=== PATIENT | male | born 1945 | race Caucasian/White ===

== ENCOUNTER 2017-01-16 20:19 | Emergency (ER) ==
[2017-01-16 20:38] VITALS: TEMP 97.3; BMI 30.7
[2017-01-16] MEDS ORDERED: SODIUM CHLORIDE 1,000 ML IV STA ×2 (20:42→22:31)
[2017-01-16 20:58] LABS: BASOPHILS # (AUTO) 0.1 K/uL (0-0.2); BASOPHILS % (AUTO) 0.8 % (0.0-3.0); EOSINOPHILS # (AUTO) 0.3 K/ul (0.0-0.7); EOSINOPHILS % (AUTO) 4.1 % (0.0-7.0); HEMATOCRIT 40.4 % (42.0-52.0); HEMOGLOBIN 14.1 g/dl (14.0-18.0); IMMATURE GRANULOCYTE % (AUTO) 0.3 % (0.0-5.0); LYMPHOCYTES # (AUTO) 1.5 K/uL (0.60-3.4); LYMPHOCYTES % (AUTO) 23.6 (10.0-50.0); MEAN CORPUSCULAR HEMOGLOBIN 33.3 pg (27.0-31.0); MEAN CORPUSCULAR HGB CONC 34.9 (31.8-35.4); MEAN CORPUSCULAR VOLUME 95.3 fl (80.0-94.0); MONOCYTES # (AUTO) 0.5 K/uL (0.4-2.0); MONOCYTES % (AUTO) 7.3 (0-10); NEUTROPHILS # (AUTO) 4.1 K/ul (2.0-6.9); NEUTROPHILS % (AUTO) 63.9; PLATELET COUNT 179 10^3/uL (140-440); RED BLOOD COUNT 4.24 10^6/ul (4.70-6.10)
--- NOTE | 2017-01-16 21:20 | CT ---
EXAM: CT brain without contrast HISTORY: Dizzy TECHNIQUE: Multi-slice transaxial helical with coronal and sagital reformated images COMPARISON: None FINDINGS: The midline structures are central. The ventricles are neither dilated nor displaced. Th e sulci and subdural spaces are prominent at the convexities. Minimal low attenuation in the perivent ricular white matter is nonspecific but is likely related to chronic microvascular ischemic disease. Focal encephalomalacia is noted in the left frontal lobe. No acute intraparenchymal or extraaxial hem orrhagic collections are detected. The calvarium is intact. Scattered ethmoid air cells have thickened mucous membranes. The other vis ible portions of the paranasal sinuses and mastoid air cells are clear. IMPRESSION: 1. No acute intracranial process. 2. 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 3. Encephalomalacia in the left frontal lobe. 4. Scattered ethmoid air cell disease.
[2017-01-16 21:23] LABS: ALBUMIN 3.4 g/dL (3.4-5.0); ALBUMIN/GLOBULIN RATIO 0.81; ANION GAP 15.2; BILIRUBIN,TOTAL 0.26 mg/dL (0.00-1.20); BUN/CREATININE RATIO 17.1; CALCIUM 8.6 mg/dL (8.2-10.2); CREATININE 1.52 mg/dL (0.60-1.10); POTASSIUM 4.2 mmol/L (3.5-5.1); TOTAL PROTEIN 7.6 g/dL (5.8-8.1); TROPONIN I 0.017 ng/ml (0.0000-0.4000)
--- NOTE | 2017-01-16 22:03 | ED.PDOC ---
General ED Provider: Dr. AYLIN GAFFNEY-ER Chief Complaint: Non-specific Complaint Stated Complaint: i took 11/2 tabs of viagra plus flomax and drank a beer and felt dizzy, with blurred vision--bp here 100 systolic Time Seen by Physician: 20:25 Mode of Arrival: Walk-In Information Source: Patient Exam Limitations: No limitations Primary Care Provider: HEATH GABRIEL Nursing and Triage Documentation Reviewed and Agree: Yes Neurological Complaint Exam - Weakness Complaint/Exam Last Known Well: this afternoon Onset: Sudden Symptoms Are: Resolved Initial Severity: Mild Current Severity: Mild Character: Reports: Weak Aggravating: Reports: Position change, Supine to erect Alleviating: Reports: Lying down Associated Signs and Symptoms: Reports: Diaphoresis, Change in medication. Denies: Nausea, Vomiting, Tinnitus, Chest pain, Short of air, Palpitations, Unsteady gait, GI blood loss, Visual changes, Decreased oral intake, Change in diet, OTC meds, Loss of balance CVA Risk Factors: Reports: None Related Surgical History: Reports: None JVD Present: No Carotid Bruit Present: No Glascow Coma Scale (see protocol): 15 Nystagmus Present: No Gag Reflex Present: Yes Meningeal Signs Positive: No Focal Weakness: Present: None Focal Sensory Loss: Present: None Gait: Normal [id number]: Normal Findings Romberg Test Positive: No Babinski Sign: Negative Right, Negative Left Heel to Toe Normal: Yes Jean-Hallpike Test Positive: Yes Differential Diagnoses: CAD, Hypovolemia, Medication reaction, Other Quality Indicator For Non-Traumatic Chest Pain/Syncope: EKG Performed Review of Systems - Review Of Systems Constitutional: Reports: No symptoms Eyes: Reports: No symptoms Ears, Nose, Mouth, Throat: Reports: No symptoms Respiratory: Reports: No symptoms Cardiac: Reports: Lightheadedness GI: Reports: No symptoms : Reports: No symptoms Musculoskeletal: Reports: No symptoms Skin: Reports: No symptoms Neurological: Reports: Weakness Endocrine: Reports: No symptoms Hematologic/Lymphatic: Reports: No symptoms All Other Systems: Reviewed and Negative Past Medical History - Past Medical History Previously Healthy: No Endocrine: Reports: Unknown Cardiovascular: Reports: Unknown Respiratory: Reports: Unknown Hematological: Reports: Unknown Gastrointestinal: Reports: Unknown Genitourinary: Reports: Unknown Neuro/Psych: Reports: Unknown Musculoskeletal: Reports: Unknown Cancer: Reports: Unknown - Surgical History General Surgical History: Reports: Unknown - Family History Family History: Reports: Unknown - Social History Smoking Status: Former smoker Hx Substance Use: No Alcohol Screening: Occasionally - Immunizations Tetanus Shot up to Date: Yes Physical Exam - Physical Exam Appearance: Well-appearing, No pain distress, Well-nourished Eyes: JACOB, EOMI, Conjunctiva clear ENT: Ears normal, Nose normal, Oropharynx normal Neck: Supple Respiratory: Airway patent Cardiovascular: RRR, Pulses normal, No rub, No murmur GI/: Soft, Nontender, No masses, Bowel sounds normal, No Organomegaly Musculoskeletal: Normal strength, ROM intact, No edema, No calf tenderness Skin: Warm, Dry, Normal color Neurological: Sensation intact, Alert, Oriented Psychiatric: Affect appropriate, Mood appropriate Interpretation - Radiology Interpretation Radiology Interpretation By: Radiologist Radiology Results: Negative Exam Interpreted: CT Scan - EKG Interpretation Time of EKG #1: 22:04 Rate: Normal Rhythm: Sinus Ectopy: None Ral[place]: NL ST Segment: Normal Re-Evaluation - Re-Evaluation Time of Re-Evaluation: 22:58 Status: Improved (no dizziness or chest pain) Vital Signs Stable: Yes (bp improved) Pain Level: 0 Appearance: NAD Lungs: Clear Skin: Warm and Dry Neuro: Alert and Oriented X3 CV: RRR Critical Care Note - Critical Care Note Total Time (mins): 0 Course - Course Hematology/Chemistry: 01/16/17 20:52 01/16/17 20:52 Orders, Labs, Meds: Lab Review 01/16/17 01/16/17 01/16/17 20:52 20:52 20:52 WBC 6.40 RBC 4.24 L Hgb 14.1 Hct 40.4 L MCV 95.3 H MCH 33.3 H MCHC 34.9 RDW Coeff of Margaret 12.3 Plt Count 179 Immature Gran % (Auto) 0.3 Neut % (Auto) 63.9 Lymph % (Auto) 23.6 Calhoun % (Auto) 7.3 Eos % (Auto) 4.1 Baso % (Auto) 0.8 Immature Gran # (Auto) 0.0 Neut # 4.1 Lymph # 1.5 Calhoun # 0.5 Eos # 0.3 Baso # 0.1 D-Dimer (Manual) Sodium 143 Potassium 4.2 Chloride 112 H Carbon Dioxide 20 L Anion Gap 15.2 BUN 26 H Creatinine 1.52 H Estimated GFR (MDRD) 46.00 BUN/Creatinine Ratio 17.10 Glucose 115 Calcium 8.6 Total Bilirubin 0.26 AST 22 ALT 29 Alkaline Phosphatase 102 Total Creatine Kinase 97 Troponin I 0.0170 Total Protein 7.6 Albumin 3.4 Globulin 4.2 Albumin/Globulin Ratio 0.81 Plasma/Serum Alcohol < 10.0 01/16/17 20:52 WBC RBC Hgb Hct MCV MCH MCHC RDW Coeff of Margaret Plt Count Immature Gran % (Auto) Neut % (Auto) Lymph % (Auto) Calhoun % (Auto) Eos % (Auto) Baso % (Auto) Immature Gran # (Auto) Neut # Lymph # Calhoun # Eos # Baso # D-Dimer (Manual) 574.67 Sodium Potassium Chloride Carbon Dioxide Anion Gap BUN Creatinine Estimated GFR (MDRD) BUN/Creatinine Ratio Glucose Calcium Total Bilirubin AST ALT Alkaline Phosphatase Total Creatine Kinase Troponin I Total Protein Albumin Globulin Albumin/Globulin Ratio Plasma/Serum Alcohol Orders Category Date Time Status EKG-(ED ONLY) Stat CARDIO 01/16/17 20:41 Completed Rubbish Collector [ED ADVERTISING ACCOUNT MANAGER APPLIED] .ONCE EMERGENCY 01/16/17 20:42 Active IV [ED IV/MEDIPORT/POWERPORT] .ONCE EMERGENCY 01/16/17 20:42 Active CBC W/ AUTO DIFF Stat LAB 01/16/17 20:52 Completed COMPREHENSIVE METABOLIC PANEL Stat LAB 01/16/17 20:52 Completed CREATINE KINASE Stat LAB 01/16/17 20:52 Completed D-DIMER Stat LAB 01/16/17 20:52 Completed ETOH LEVEL [BLOOD ALCOHOL] Stat LAB 01/16/17 20:52 Completed TROPONIN I Stat LAB 01/16/17 20:52 Completed 0.9 % Sodium Chloride [Saline Flush] MEDS 01/16/17 20:42 Ordered 1 syr IVF PRN PRN Sodium Chloride 0.9% [Sodium Chloride] 1,000 ml MEDS 01/16/17 20:42 Discontinued IV BOLUS Sodium Chloride 0.9% [Sodium Chloride] 1,000 ml MEDS 01/16/17 22:[address] HEAD W/O CONTRAST Stat RADS 01/16/17 20:42 Completed Medications Generic Name Dose Route Start Last Admin Trade Name Freq PRN Reason Stop Dose Admin Sodium Chloride 1,000 mls @ 1,000 mls/hr 01/16/17 22:31 01/16/17 22:41 Sodium Chloride IV 01/16/17 23:30 1,000 mls/hr BOLUS STA Administration Sodium Chloride 1 syr 01/16/17 20:42 01/16/17 21:02 Saline Flush IVF 1 syr PRN PRN Administration To flush IV Discontinued Medications Generic Name Dose Route Start Last Admin Trade Name Freq PRN Reason Stop Dose Admin Sodium Chloride 1,000 mls @ 1,000 mls/hr 01/16/17 20:42 01/16/17 21:02 Sodium Chloride IV 01/16/17 21:41 1,000 mls/hr BOLUS STA Administration Vital Signs: Temp Pulse Resp BP Pulse Ox 01/16/17 20:23 97.3 F L 92 H 20 100/65 93 L Departure - Departure Time of Disposition: 22:58 Disposition: HOME SELF-CARE Discharge Problem: Hypotension due to drugs Instructions: Hypotension (ED) Condition: Good Pt referred to PMD for follow-up: Yes Additional Instructions: monitor bp--take flomax before bedtime--dont take more viagra than what is prescribed--talk to dr gabriel wednesday about kidney function Allergies/Adverse Reactions: Allergies morphine Adverse Reaction (Verified 01/16/17 20:35) Home Medications: Ambulatory Orders Aspirin [Aspirin EC] 81 mg PO DAILY 01/16/17 Venlafaxine HCl [Effexor] 75 mg PO DAILY 01/16/17 Disposition Discussed With: Patient, Family
[2017-01-16 23:04] VITALS: BP 112/74
== END 2017-01-16 23:05 | disposition home or self-care (01) ==
LOC: ED 20:19
DX: I95.2 Hypotension due to drugs (principal); T46.7X5A Adverse effect of peripheral vasodilators, initial encounter; R42 Dizziness and giddiness; R53.1 Weakness; H53.8 Other visual disturbances
CPT/HCPCS: 36415; 80053; 80307; 82550; 84484; 85025; 85379; 93005; 93010; 96360; 96361; 99284

== ENCOUNTER 2017-02-03 07:57 | Day surgery (SDC) ==
[2017-02-03] MEDS: TETRACAINE 0.5% UNIT-DOSE OP PRN ×2 (08:30→09:02)
[2017-02-03] MEDS: BETADINE OPTH PREP OP PRN ×2 (08:31→09:02)
[2017-02-03] MEDS: CYCLOGYL 2% OPTH OP PRN ×3 (08:32→08:42)
[2017-02-03 08:47] VITALS: TEMP 98.6
[2017-02-03] MEDS ORDERED: AK-DILATE 10% OPTH SOL OP PRN (08:51)
[2017-02-03] MEDS ORDERED: OMIDRIA 1-0.3% IN BSS BAG IR ONE (08:51)
[2017-02-03] MEDS ORDERED: NIRAVAM ODT (SURGERY) PO PRN (08:51)
[2017-02-03] MEDS ORDERED: BRIMONIDINE TARTRATE 0.2% OPTH SOL OP PRN (08:51)
[2017-02-03] MEDS ORDERED: PRED FORTE 1% OPTH SOL OP ONE (08:51)
[2017-02-03] MEDS ORDERED: LIDOCAINE 1%/PHENYLEPHRINE 1.5% BSS (SURGERY) INTRAOCULA ONE (08:51)
[2017-02-03] MEDS ORDERED: ZOFRAN 4 MG/2 ML IVP ONE (08:51)
[2017-02-03] MEDS ORDERED: LIDOCAINE 1% 20 ML MDV ID STA (08:51)
[2017-02-03] MEDS ORDERED: MOXIFLOXACIN 150 MCG/0.1 ML-BSS INJ (SURGERY) IO ONE (08:51)
[2017-02-03] MEDS ORDERED: TORADOL ONE (09:00)
[2017-02-03] MEDS ORDERED: DIPRIVAN 20 ML VIAL IVP ONE (09:00)
[2017-02-03] MEDS ORDERED: SUBLIMAZE ONE (09:00)
[2017-02-03] MEDS ORDERED: VERSED ONE (09:00)
[2017-02-03 09:44] VITALS: BP 113/62
== END 2017-02-03 09:50 | disposition home or self-care (01) ==
LOC: SURG 07:57
PROVIDERS: ATTEND Ophthalmology
DX: H25.812 Combined forms of age-related cataract, left eye (principal)

== ENCOUNTER 2017-02-17 07:37 | Day surgery (SDC) ==
[2017-02-17] MEDS ORDERED: LIDOCAINE 1% 20 ML MDV ID ONE (08:10)
[2017-02-17] MEDS: CYCLOGYL 2% OPTH OP PRN ×4 (08:15→08:27)
[2017-02-17] MEDS: BETADINE OPTH PREP OP PRN ×3 (08:15→08:46)
[2017-02-17] MEDS: TETRACAINE 0.5% UNIT-DOSE OP PRN ×4 (08:15→08:46)
[2017-02-17 08:17] VITALS: TEMP 99.2
[2017-02-17] MEDS ORDERED: PRED FORTE 1% OPTH SOL OP ONE (08:20)
[2017-02-17] MEDS ORDERED: NIRAVAM ODT (SURGERY) PO PRN (08:20)
[2017-02-17] MEDS ORDERED: LIDOCAINE 1%/PHENYLEPHRINE 1.5% BSS (SURGERY) INTRAOCULA ONE (08:20)
[2017-02-17] MEDS ORDERED: AK-DILATE 10% OPTH SOL OP PRN (08:20)
[2017-02-17] MEDS ORDERED: OMIDRIA 1-0.3% IN BSS BAG IR ONE (08:20)
[2017-02-17] MEDS ORDERED: MOXIFLOXACIN 150 MCG/0.1 ML-BSS INJ (SURGERY) IO ONE (08:20)
[2017-02-17] MEDS ORDERED: BRIMONIDINE TARTRATE 0.2% OPTH SOL OP PRN (08:20)
[2017-02-17] MEDS ORDERED: ZOFRAN 4 MG/2 ML IVP ONE (08:20)
[2017-02-17] MEDS ORDERED: TORADOL ONE (08:50)
[2017-02-17] MEDS ORDERED: DIPRIVAN 20 ML VIAL IVP ONE (08:50)
[2017-02-17] MEDS ORDERED: SUBLIMAZE ONE (08:50)
[2017-02-17] MEDS ORDERED: VERSED ONE (08:50)
[2017-02-17 09:45] VITALS: BP 145/85
[2017-02-17] MEDS ORDERED: LIDOCAINE 1% 20 ML MDV ID STA ×2 (11:50→11:54)
== END 2017-02-17 10:00 | disposition home or self-care (01) ==
LOC: SURG 07:37
PROVIDERS: ATTEND Ophthalmology
DX: H25.811 Combined forms of age-related cataract, right eye (principal)

== ENCOUNTER 2018-05-31 06:46 | Day surgery (SDC) ==
[2018-05-31 07:37] VITALS: TEMP 97.7
[2018-05-31] MEDS ORDERED: LIDOCAINE 1% 20 ML MDV ID STA (07:37)
[2018-05-31] MEDS ORDERED: SUBLIMAZE ONE (09:10)
[2018-05-31] MEDS ORDERED: LIDOCAINE HCL 2% LUER-JET ONE (09:10)
[2018-05-31] MEDS ORDERED: DIPRIVAN 20 ML VIAL IVP ONE (09:10)
[2018-05-31] MEDS ORDERED: VERSED ONE (09:10)
--- NOTE | 2018-06-01 14:54 | OP ---
INDICATIONS FOR PROCEDURE: 72-year-old gentleman presents for endoscopy and colonoscopy. He has a personal history of Bose's esophagus. He is status post Sachin fundoplication in the past. He also has a history of colon polyps, unknown histology with last colonoscopy greater than 5 years ago. MEDICATIONS: SEE ANESTHESIA NOTES. PROCEDURE: 1. ENDOSCOPY, ESOPHAGEAL BIOPSY, PAKISTANI DILATATION. 2. COLONOSCOPY, SNARE POLYPECTOMY. REPORT: The risks, benefits, alternatives and limitations were discussed in detail with the patient. Informed consent was obtained. After adequate sedation was achieved, the video endoscope was introduced in the posterior pharynx and esophagus under direct vision and I easily advanced down to the second portion of the duodenum. I then slowly withdrew. The duodenal mucosa appeared unremarkable as did the duodenal bulb. The antrum and body were relatively unremarkable. The scope was retroflexed to look at the cardia and fundus which revealed what looked like a slipped Sachin. The scope was anteflexed and withdrawn back in the esophagus. He had a hernia pouch, it looked like the Sachin was at 40 cm and there was gastric tight mucosa which I think was the cardia more so than the tubular esophagus extending up to the GE junction which was located at 35 cm. Here there was moderate inflammation consistent with reflux esophagitis. It was located at the GE junction and extended proximal for 2 to 3 cm with small areas of erosions consistent with Grade C reflux esophagitis. Four quadrant biopsies were obtained. There was also stricturing located in this area. This caused mild luminal narrowing. I advanced the scope back down the gastric lumen and placed a guidewire and withdrew the scope. Over the guidewire I easily advanced a 54 Wol[place] dilator. The patient tolerated the procedure well with stable vital signs and pulse oximetry throughout. The patient's bed was turned. A digital rectal exam revealed good tone, no masses. The colonoscope was introduced into the rectum and advanced under direct visual guidance to the cecum. The cecum was identified by the appendiceal orifice and IC valve. I then slowly withdrew the scope in a circumferential manner examining the mucosa quite carefully. I looked on the proximal and distal side of folds and flexures as best as possible. I was able to retroflex the scope in the right colon as well as the left colon to increase visualization. The colonic mucosa is unremarkable its entire length except for a small 5 mm polyp in the transverse colon. This polyp was actually noticed when I advanced the scope and I removed and destroyed this polyp. Withdrawing the scope revealed no other abnormalities including on retroflex view of the anal canal. The prep was good. The withdrawal time was 7 minutes and 35 seconds. The patient tolerated the procedure well with stable vital signs and pulse oximetry throughout. IMPRESSION: 1. LA GRADE C REFLUX ESOPHAGITIS. 2. APPARENT SLIPPED SACHIN FUNDOPLICATION. 3. ESOPHAGEAL STRICTURE DILATED ABOVE. 4. SMALL COLONIC POLYP REMOVED AND DESTROYED. RECOMMENDATIONS: 1. Strict reflux precautions. 2. Protonix 40 mg p.o. q.a.m. 3. Await esophageal biopsy results; if everything is benign as expected, I recommend repeat endoscopy examination again in three months to show resolution of the esophagitis and obtain Bose's surveillance biopsies. 4. Repeat colonoscopy examination again in 5 years. 5. Will see him back in the office as needed in the meantime. CC: DR. HEATH GABRIEL M.D. [facility]
[2018-06-02 14:44] VITALS: BP 132/676
== END 2018-05-31 11:00 | disposition home or self-care (01) ==
LOC: SURG 06:46
PROVIDERS: ATTEND Internal Medicine Gastroenterology
DX: K22.70 Barrett's esophagus without dysplasia (principal); Z86.010 Personal history of colon polyps; K21.0 Gastro-esophageal reflux disease with esophagitis; K22.2 Esophageal obstruction; K63.5 Polyp of colon

== ENCOUNTER 2024-03-27 20:04 | Inpatient (IN) ==
--- NOTE | 2024-03-27 20:49 | ED.PDOC ---
General ED Provider: Dr. STACEY GRANT MD Chief Complaint: Altered Mental Status Stated Complaint: 78-year-old male history of dementia usually not oriented to person or place or time, coming from assisted living facility, report of increased agitation as well as diarrhea and vomiting. Patient is unable to give any history due to his underlying condition and critical illness. His son is at the bedside helps makes decisions states he is DNR/DNI. Unknown if he has had sick contacts. Time Seen by Provider: 03/27/24 20:28 Information Source: Assisted Living Primary Care Provider: HEATH GABRIEL Nursing and Triage Documentation Reviewed and Agree: Yes What is Opioid Naive?: *Opioid Naive implies the patient is not already taking opioids or not chronically receiving opioids on a daily basis. *PRN dosing is not "usually" associated with tolerance. *Patients are at higher risk of over-sedation and aspiration. What is Opioid Tolerant?: *Opioid Tolerance implies less than the expected response to an opioid. *Acquired tolerance is defined by the patient taking 60mg of oral morphine daily (or equianalgesic dose of another opioid) for 1 week or more. *Often associated with chronic pain. *May take more than usual dose to achieve desired pain control. Review of Systems Review Of Systems Constitutional: Reports Other (Unable to obtain review of systems due to baseline mental status and illness) [facility] Medical History (Updated 03/28/24 @ 03:32 by SABINE ROLDAN RN) Bleeding tendency D69.9 - Hemorrhagic condition, unspecified (ICD-10) Measles B05.9 - Measles without complication (ICD-10) Cancer C80.1 - Malignant (primary) neoplasm, unspecified (ICD-10) Hypertension I10 - Essential (primary) hypertension (ICD-10) Family History (Updated 03/28/24 @ 03:32 by SABINE ROLDAN RN) FATHER Asthma FATHER Diabetes Mother Diabetes Surgical History (Updated 03/28/24 @ 03:32 by SABINE ROLDAN RN) H/O kidney removal Z90.5 - Acquired absence of kidney (ICD-10) Knee joint replacement status Z96.659 - Presence of unspecified artificial knee joint (ICD-10) Previous back surgery Z98.890 - Other specified postprocedural states (ICD-10) Physical Exam Physical Exam Appearance: Reports Ill-appearing and Other (Agitated) Ill-appearing: Moderate Pain Distress: None Eyes: Reports EOMI and Conjunctiva clear Respiratory: Reports Airway patent and Breath sounds clear; Denies Rhonchi, Wheezes or Retractions Cardiovascular: Reports Pulses normal and Tachycardia; Denies No murmur or Murmur GI/: Reports Soft and Tender Musculoskeletal: Reports Normal strength and ROM intact Skin: Reports Warm Neurological: Reports Alert to verbal and Alert to pain Interpretation EKG Interpretation EKG Interpretation By: ED Physician Time of EKG #1: 22:11 Rate: Normal Rhythm: Sinus Ectopy: None Arp: NL ST Segment: Normal Course Course 03/28/24 05:48 03/28/24 05:48 Orders, Labs, Meds: Lab Review 03/27/24 03/27/24 03/27/24 21:26 22:39 22:43 WBC 7.46 RBC 2.87 L Hgb 10.0 L Hct 32.0 L MCV 111.5 H MCH 34.8 H MCHC 31.3 L RDW Coeff of Margaret 13.4 Plt Count 102 L Immature Gran % (Auto) 0.7 Neut % (Auto) 91.9 H Lymph % (Auto) 2.0 L Iroquois % (Auto) 4.8 Eos % (Auto) 0.3 Baso % (Auto) 0.3 Neut # (Auto) 6.9 Lymph # (Auto) 0.2 L [place]ois # (Auto) 0.4 Eos # (Auto) 0.0 Baso # (Auto) 0.0 Immature Gran # (Auto) 0.1 ESR 35 H PT 11.2 H INR 1.08 Sodium 137.3 Potassium 3.54 Chloride 105.7 Carbon Dioxide 21.1 L Anion Gap 14.04 BUN 22.1 H Creatinine 1.29 H Estimated GFR (MDRD) 54.00 BUN/Creatinine Ratio 17.13 Glucose 125.9 H Lactic Acid 1.02 Calcium 7.60 L Total Bilirubin 0.72 AST 29.0 ALT 41.3 Alkaline Phosphatase 118.2 Troponin I 0.039 NT-Pro-B Natriuret Pep 2360 H Total Protein 5.39 L Albumin 3.29 L Globulin 2.10 Albumin/Globulin Ratio 1.56 Procalcitonin 0.25 H TSH 0.317 L Urine Color Urine Clarity Urine pH Ur Specific Sheldon Urine Protein Urine Glucose (UA) Urine Ketones Urine Blood Urine Nitrite Urine Bilirubin Urine Urobilinogen Ur Leukocyte Esterase Urine Microscopic RBC Urine Microscopic WBC Ur Squamous Epith Cells Urine Bacteria Urine Mucus Influ A Molecular Assay Positive by naat H Influ B Molecular Assay Negative by naat RSV Antigen Negative by naat SARS CoV-2 RNA Rapid DONN Negative 03/28/24 00:07 WBC RBC Hgb Hct MCV MCH MCHC RDW Coeff of Margaret Plt Count Immature Gran % (Auto) Neut % (Auto) Lymph % (Auto) [place]roquois % (Auto) Eos % (Auto) Baso % (Auto) Neut # (Auto) Lymph # (Auto) [place]roquois # (Auto) Eos # (Auto) Baso # (Auto) Immature Gran # (Auto) ESR PT INR Sodium Potassium Chloride Carbon Dioxide Anion Gap BUN Creatinine Estimated GFR (MDRD) BUN/Creatinine Ratio Glucose Lactic Acid Calcium Total Bilirubin AST ALT Alkaline Phosphatase Troponin I NT-Pro-B Natriuret Pep Total Protein Albumin Globulin Albumin/Globulin Ratio Procalcitonin TSH Urine Color Yellow Urine Clarity Clear Urine pH 5.5 Ur Specific Sheldon 1.010 Urine Protein 1+ H Urine Glucose (UA) Negative Urine Ketones Trace H Urine Blood Trace-lysed Urine Nitrite Negative Urine Bilirubin Negative Urine Urobilinogen 0.2 Ur Leukocyte Esterase Negative Urine Microscopic RBC 2-5 Urine Microscopic WBC 2-5 Ur Squamous Epith Cells 0-2 Urine Bacteria Trace Urine Mucus Trace Influ A Molecular Assay Influ B Molecular Assay RSV Antigen SARS CoV-2 RNA Rapid DONN Orders Category Date Time Status ADMIT PATIENT INPATIENT .TO [facility] (MONITORED BED) ADMISSION 03/28/24 01:36 Active ADMIT PATIENT INPATIENT .TO [facility] (MONITORED BED) ADMISSION 03/28/24 01:41 Active EKG-(ED ONLY) Stat CARDIO 03/27/24 20:42 Completed INTAKE & OUTPUT Q8HR CARE 03/28/24 01:42 Active IP: INSERT SALINE LOCK ONCE CARE 03/28/24 01:42 Active NPO REMINDER: IMAGING ONCE CARE 03/27/24 20:36 Completed NPO REMINDER: IMAGING ONCE CARE 03/27/24 20:56 Completed TELEMETRY MONITORING TELE CARE 03/28/24 01:36 Active TELEMETRY MONITORING TELE CARE 03/28/24 01:42 Completed VITAL SIGNS Q4HR CARE 03/28/24 01:42 Active CODE [ED CODE STATUS] .ONCE EMERGENCY 03/28/24 01:32 Active ED APPLY O2 .ONCE EMERGENCY 03/27/24 20:36 Active ED HAM PASSER APPLIED .ONCE EMERGENCY 03/27/24 20:36 Active ED IV/MEDIPORT/POWERPORT .ONCE EMERGENCY 03/27/24 20:36 Active ED VITAL SIGNS .ONCE EMERGENCY 03/27/24 20:36 Active BLOOD CULTURE (ED ONLY) Stat LAB 03/27/24 22:39 Received C-REACTIVE PROTEIN Stat LAB 03/27/24 20:36 Ordered CBC W/ AUTO DIFF DAILY@0600 LAB 03/28/24 05:48 Completed CBC W/ AUTO DIFF DAILY@0600 LAB 03/29/24 06:00 Ordered CBC W/ AUTO DIFF Stat LAB 03/27/24 22:39 Completed COMPREHENSIVE METABOLIC PANEL DAILY@0600 LAB 03/28/24 05:48 Completed COMPREHENSIVE METABOLIC PANEL DAILY@0600 LAB 03/29/24 06:00 Ordered COMPREHENSIVE METABOLIC PANEL Stat LAB 03/27/24 22:43 Completed ESR Stat LAB 03/27/24 22:39 Completed FLU A/B MOLECULAR Stat LAB 03/27/24 21:26 Completed LACTIC ACID Stat LAB 03/27/24 22:39 Completed MRSA SCREEN Routine LAB 03/27/24 21:26 Received NT-PROBNP(ED) Stat LAB 03/27/24 22:39 Completed PROCALCITONIN Stat LAB 03/27/24 22:39 Completed PT WITH INR Stat LAB 03/27/24 22:39 Completed RSV Stat LAB 03/27/24 21:26 Completed SARS COV-2 RNA RAPID DONN Stat LAB 03/27/24 21:26 Completed TROPONIN I Stat LAB 03/27/24 22:39 Completed TSH [THYROID STIMULATING HORMONE] Stat LAB 03/27/24 22:39 Completed URINALYSIS C & S IF INDICATED Stat LAB 03/28/24 00:07 Completed 0.9 % Sodium Chloride [Saline Flush] Meds 03/27/24 20:36 Active 1 syr IVF PRN PRN Acetaminophen Meds 03/27/24 20:49 Discontinued 1,000 mg in 100 ml IV ONCE Enoxaparin Sodium [Lovenox] Meds 03/28/24 09:00 Active 30 mg SUBCUT DAILY Haloperidol Lactate [Haldol] Meds 03/27/24 20:55 Discontinued 5 mg IM ONCE ONE Iodixanol [Visipaque 320 mg/ml 100Ml] Meds 03/27/24 23:20 Discontinued 100 ml IVP ONCE ONE Midazolam HCl Inj [Versed] Meds 03/27/24 10:25 Discontinued 2 mg IM ONCE STA Midazolam HCl Inj [Versed] Meds 03/27/24 22:08 Discontinued 5 mg .ROUTE .STK-MED ONE Olanzapine [Zyprexa] Meds 03/27/24 21:34 Discontinued 5 mg IM ONCE ONE Piperacillin Sodium/Tazobactam [Zosyn 3.375 gm] 3.375 Meds 03/28/24 05:00 Active gm 0.9 % Sodium Chloride [Sodium Chloride 100Ml] 100 ml IV Q8H Piperacillin Sodium/Tazobactam [Zosyn 4.5 gm] 4.5 gm Meds 03/27/24 20:49 Discontinued 0.9 % Sodium Chloride [Sodium Chloride 100Ml] 100 ml IV ONCE Sodium Chloride 0.9% [Sodium Chloride] 1,000 ml Meds 03/28/24 02:00 Active IV 75 mls/hr Sodium Chloride 0.9% [Sodium Chloride] 1,000 ml Meds 03/27/24 20:49 Discontinued IV BOLUS Vancomycin/Water For Inj (Peg) [Vancomycin 1 Gram/200 Meds 03/27/24 20:49 Discontinued ml Premix] 1 gm in 200 ml IV ONCE RESUSCITATION STATUS Routine OTHERS 03/28/24 01:41 Ordered CHEST, 1V AP ONLY Stat RADS 03/27/24 20:[address] ABDOMEN/PELVIS W CONTRAST Stat RADS 03/27/24 20:[address] HEAD W/O CONTRAST Stat RADS 03/27/24 20:36 Completed CTA CHEST PE PROTOCOL Stat RADS 03/27/24 20:56 Completed Medications Generic Name Dose Route Start Last Admin Trade Name Freq PRN Reason Stop Dose Admin Enoxaparin Sodium 30 mg 03/28/24 09:00 Enoxaparin Sodium 30 Mg/0.3 Ml Syr SUBCUT DAILY JZAZ Sodium Chloride 1,000 mls @ 75 mls/hr 03/28/24 02:00 03/28/24 03:01 Sodium Chloride IV 75 mls/hr .[id number] JAZZ Administration Piperacillin Sod/Tazobactam 100 mls @ 200 mls/hr 03/28/24 05:00 03/28/24 05:50 Sod 3.375 gm/ Sodium Chloride IV 03/31/24 04:59 200 mls/hr Q8H JAZZ Administration Sodium Chloride 1 syr 03/27/24 20:36 03/27/24 21:05 0.9% Sodium Chloride 10 Ml Disp.Syrin IVF 1 syr PRN PRN Administration To flush IV Discontinued Medications Generic Name Dose Route Start Last Admin Trade Name Freq PRN Reason Stop Dose Admin Haloperidol Lactate 5 mg 03/27/24 20:55 03/27/24 21:04 Haloperidol Lactate 5 Mg/Ml Vial IM 03/27/24 20:56 5 mg ONCE ONE Administration Sodium Chloride 1,000 mls @ 1,000 mls/hr 03/27/24 20:49 03/28/24 00:23 Sodium Chloride IV 03/27/24 21:48 Infused BOLUS ONE Infusion Acetaminophen 1,000 mg in 100 mls @ 400 mls/hr 03/27/24 20:49 03/27/24 21:05 Acetaminophen IV 03/27/24 21:03 400 mls/hr ONCE ONE Administration VANCOMYCIN/WATER FOR INJ (PEG) 1 gm in 200 mls @ 200 mls/hr 03/27/24 20:49 03/27/24 21:05 Vancomycin 1 Gram/200 Ml Premix IV 03/27/24 21:48 200 mls/hr ONCE ONE Administration Piperacillin Sod/Tazobactam 100 mls @ 200 mls/hr 03/27/24 20:49 03/27/24 21:05 Sod 4.5 gm/ Sodium Chloride IV 03/27/24 21:18 200 mls/hr ONCE ONE Administration Iodixanol 100 ml 03/27/24 23:20 03/27/24 23:21 Iodixanol 320 Mg/Ml 100ml IVP 03/27/24 23:21 100 ml ONCE ONE Administration Midazolam HCl 2 mg 03/27/24 10:25 03/28/24 00:57 Midazolam Hcl Inj 5 Mg/Ml Vial IM 03/27/24 10:26 Not Given ONCE STA Olanzapine 5 mg 03/27/24 21:34 03/27/24 21:43 Olanzapine 10 Mg Vial IM 03/27/24 21:35 5 mg ONCE ONE Administration Vital Signs: Temp Pulse Resp BP Pulse Ox 03/27/24 22:56 100.3 F 130 H 24 H 165/96 H 95 Discharge Plan Discharge Patient Disposition: ADMITTED INPATIENT Discharge Problem: Altered mental status, Influenza A, DINA (acute kidney injury), Anemia, Hypocalcemia Did you review [place] [employer] for ALL controlled substances?: Not Applicable ED Provider: STACEY GRANT Condition: Stable Physician Progress Note: 78-year-old male history of dementia ANO x 0 at baseline, unknown if has history of A-fib however he is on Eliquis and Cardizem, brought in for diarrhea is unable to provide any further history. He was very agitated when he first came and was not allowed to get IV access her vitals. He now has an IV. He is tachycardic to 130 and A-fib he feels warm and appears clammy he is also ill- appearing. His blood pressure is 160s. He is DNR/DNI. His abdomen is tender. Differential is broad at this point in time including but not limited to sepsis due to unclear etiology, medication issues, intracranial hemorrhage, will hold on medications for rate control at this time as patient does appear dehydrated will give fluids. He is afebrile orally but suspect a rectal temperature. Will give vancomycin and Zosyn. Will get CT of head chest abdomen pelvis, urinalysis, blood cultures will give IM Haldol due to significant agitation in order to get studies performed. Patient was increasingly agitated despite 5 mg of Haldol, did give IM Zyprexa. Patient was still agitated while performing central line on another patient. Needed to further sedate to get definitive access. Requested nurse give to IM Romana. Patient's heart rate improved significantly, currently 90s, appears to be sinus. Blood pressure 140s. Likely due to control of agitation, antipyretics and fluid bolus. Patient came back positive for the flu. His workup otherwise was largely unremarkable with some mild anemia and a mild DINA and mild hypokalemia. Patient is now calm and resting comfortably. He has Alexander in because he was urinating on himself. There is no bacterial source that was identified as of now. His CAT scans were largely unremarkable as well. Possibly secondary to flu and dehydration. Will admit for metabolic encephalopathy and further evaluation.
--- NOTE | 2024-03-27 21:01 | DI ---
EXAM: CHEST ONE-VIEW HISTORY: Altered mental status COMPARISON: None FINDINGS: There is prominence of the right hilum. The heart size is prominent. The pulmonary vascul ature is normal. No consolidating infiltrates are detected. No pneumothoraces or pleural effusions. Old healed left rib fractures are noted. IMPRESSION: 1. No acute cardiopulmonary disease. 2. Prominent right hilum. Underlying malignancy not excluded. Recommend correlation with a CT of th e chest. 3. Old healed left rib fractures. .
[2024-03-27] MEDS: HALDOL IM ONE (21:04)
[2024-03-27] MEDS: ACETAMINOPHEN 1,000 MG/100 ML BAG IV ONE (21:05)
[2024-03-27] MEDS: VANCOMYCIN 1 GRAM/200 ML PREMIX 1 GM/200 ML BAG IV ONE (21:05)
[2024-03-27] MEDS: ZOSYN 4.5 GM 4.5 GM in SODIUM CHLORIDE 100ML 100 ML IV ONE (21:05)
[2024-03-27] MEDS: SODIUM CHLORIDE 1,000 ML IV ONE (21:07)
[2024-03-27] MEDS: ZYPREXA IM ONE (21:43)
[2024-03-27 22:17] LABS: MOLECULAR FLU A POSITIVE BY NAAT (NEGATIVE); MOLECULAR FLU B NEGATIVE BY NAAT (NEGATIVE); RSV MOLECULAR NEGATIVE BY NAAT (NEGATIVE); SARS COV-2 RNA RAPID NAAT NEGATIVE (NEGATIVE)
[2024-03-27] MEDS: VERSED ONE (22:28)
[2024-03-27 22:48] LABS: BASOPHILS % (AUTO) 0.3 % (0.0-3.0); EOSINOPHILS % (AUTO) 0.3 % (0.0-7.0); IMMATURE GRANULOCYTE # (AUTO) 0.1 (0.0-1.0); IMMATURE GRANULOCYTE % (AUTO) 0.7 % (0.0-5.0); LYMPHOCYTES # (AUTO) 0.2 K/uL (0.60-3.4); MEAN CORPUSCULAR HEMOGLOBIN 34.8 pg (27.0-31.0); MEAN CORPUSCULAR HGB CONC 31.3 (31.8-35.4); MEAN CORPUSCULAR VOLUME 111.5 fl (80.0-94.0); MONOCYTES # (AUTO) 0.4 K/uL (0.4-2.0); MONOCYTES % (AUTO) 4.8 (0-10); NEUTROPHILS # (AUTO) 6.9 K/ul (2.0-6.9); NEUTROPHILS % (AUTO) 91.9 % (42.2-75.2); PLATELET COUNT 102 10^3/uL (140-440); RDW COEFFICIENT OF VARIATION 13.4 % (11.6-14.8); RED BLOOD COUNT 2.87 10^6/ul (4.70-6.10); WHITE BLOOD COUNT 7.46 K/ul (4.2-10.2)
[2024-03-27 23:00] LABS: ALANINE AMINOTRANSFERASE 41.3 U/L (0-50); ALBUMIN 3.29 g/dL (3.5-5.0); ALKALINE PHOSPHATASE 118.2 U/L (56-119); BILIRUBIN,TOTAL 0.72 mg/dL (0.2-1.3); BLOOD UREA NITROGEN 22.1 mg/dL (9-20); CALCIUM 7.6 mg/dL (8.4-10.2); CARBON DIOXIDE 21.1 mmol/L (22-30.0); CHLORIDE 105.7 mmol/L (98-107); CREATININE 1.29 mg/dL (0.60-1.10); GLUCOSE 125.9 mg/dL (74-106); POTASSIUM 3.54 mmol/L (3.5-5.1); SODIUM 137.3 mmol/L (134.5-145); TOTAL PROTEIN 5.39 g/dL (6.3-8.2)
[2024-03-27 23:01] LABS: PROTHROMBIN TIME 11.2 SEC (9.3-11.0)
[2024-03-27] MEDS: VISIPAQUE 320 MG/ML 100ML IVP ONE (23:21)
[2024-03-27 23:26] LABS: ERYTHROCYTE SEDIMENTATION RATE 35 mm/hr (0-15)
[2024-03-27 23:40] LABS: TROPONIN I 0.039 ng/ml (0.0000-0.120)
[2024-03-27 23:58] LABS: THYROID STIMULATING HORMONE 0.317 uIU/L (0.465-4.68)
[2024-03-28 00:18] LABS: BILIRUBIN,URINE Negative (NEGATIVE); CLARITY,URINE Clear (CLEAR); COLOR,URINE Yellow (YELLOW); GLUCOSE, URINE (UA) Negative (NEGATIVE); KETONES,URINE Trace (NEGATIVE); LEUKOCYTE ESTERASE ,URINE Negative (NEGATIVE); NITRITE,URINE Negative (NEGATIVE); PH,URINE 5.5 (5-9); PROTEIN,URINE 1+ (NEGATIVE); URINE, BLOOD Trace-lysed (NEGATIVE); UROBILINOGEN,URINE 0.2 (0.2)
--- NOTE | 2024-03-28 00:23 | CT ---
EXAM: CT BRAIN WITHOUT CONTRAST HISTORY: Altered mental status TECHNIQUE: CT of the brain without intravenous contrast. FINDINGS: There is no acute hemorrhage midline shift or mass effect. No hydrocephalus or abnormal e xtra-axial fluid collection. Left frontal encephalomalacia. Chronic microvascular change of the whi te matter tracts, mild. Multiple lucencies of the skull. The visualized paranasal sinuses are clear. Soft tissues without significant abnormality. IMPRESSION: 1. No acute intracranial abnormality. 2. Left frontal encephalomalacia from prior insult. 3. Multiple calvarial lucencies suspect for metastasis versus myeloma. All CT scans are performed using dose optimization techniques as appropriate to the performed exam an d include at least one of the following: Automated exposure control, adjustment of the mA and/or kV according t o size, and the use of iterative reconstruction technique.
[2024-03-28 00:25] LABS: BACTERIA,URINE TRACE (NOT PRESENT); MUCUS,URINE TRACE (NOT PRESENT); SQUAMOUS EPITHELIAL CELL,UR 0-2 (0-5)
--- NOTE | 2024-03-28 00:32 | CT ---
EXAM: CHEST CTA WITH CONTRAST (PULMONARY ARTERY) HISTORY: Tachycardia, hypoxia. Rule out pulmonary embolus. TECHNIQUE: CTA acquisition of the chest from the thoracic inlet to the upper abdomen following IV con trast administration timed to filling of the pulmonary artery. 3D/MIP/VR images were utilized. COMPARISON: Chest radiograph 03/27/2024. FINDINGS: Lines, Tubes, Devices: None. Pulmonary arteries: - Diagnostic quality: Exam degraded by motion artifact such that nonocclusive segmental and subsegmen franko emboli cannot be excluded. - Central(Main/Lobar/Interlobar): No embolus. - Peripheral (Segmental/Subsegmental): No occlusive segmental embolus. - Right ventricle/Left ventricle ratio (normal <0.9): Normal. - Main pulmonary artery: Normal caliber. Lung Parenchyma, Pleura, and Airways: Central airways are patent. 5 mm left lower lobe nodule on axia l image 49 of series 9. No pleural effusion. Thoracic Inlet, Mediastinum, and Aurora: 1.2 cm left thyroid nodule, too small to warrant further evalu ation. No lymphadenopathy. Heart, Vessels, and Pericardium: Normal caliber aorta. No visible coronary artery calcifications. No cariomegaly. No pericardial effusion. Bones and Soft Tissues: Diffuse osseous demineralization. Chronic compression fractures at T3 T7, T8 , T10, T11, T12, L1, and L2. Status post vertebral augmentation at L2. Chronic left rib fractures. Upper Abdomen: Multiple cysts in the liver. Post cholecystectomy. Right nephrectomy. Modest hiatal hernia. IMPRESSION: No occlusive segmental or central pulmonary embolus. Smaller emboli cannot be excluded due to motion. 5 mm nodule in the left lower lobe. Consider follow-up chest CT in 1 year. Diffuse osseous demineralization. Chronic vertebral body compression fractures at multiple levels. Hiatal hernia. All CT scans are performed using dose optimization techniques as appropriate to the performed exam an d include at least one of the following: Automated exposure control, adjustment of the mA and/or kV according t o size, and the use of iterative reconstruction technique.
--- NOTE | 2024-03-28 00:36 | CT ---
EXAM: CT OF THE ABDOMEN AND PELVIS WITH CONTRAST TECHNIQUE: CT of the abdomen and pelvis was performed with contrast. Multiplanar reformats were perf ormed. HISTORY: Altered mental status, fever. COMPARISON: None. FINDINGS: Imaged lower thorax: Unremarkable. Liver: Multiple cysts in the liver with benign appearance. Gallbladder/Bile Ducts: No biliary dilation. Post cholecystectomy. Spleen: Unremarkable. Pancreas: Unremarkable. Adrenals: Unremarkable. Kidneys/Ureters: Post right nephrectomy. Left kidney is unremarkable. Bowel/mesentery/peritoneum: Modest hiatal hernia. Normal appendix. No ascites or free air. Retroperitoneum/vessels: No aortic aneurysm. Scattered atherosclerotic calcifications. No adenopathy . Pelvis: Enlarged prostate. Bladder wall thickness is normal. Bilateral fat containing inguinal jocelin ias. Bones/body wall: Diffuse osseous demineralization. Chronic compression fracture of L2 status post ve rtebral plasty. Chronic compression fractures of T10, T11, T12, at L1 as well. No acute fracture de monstrated. Moderate degenerative changes of the hips. IMPRESSION: No acute abnormality in the abdomen or pelvis. Chronic and postsurgical findings as above. All CT scans are performed using dose optimization techniques as appropriate to the performed exam an d include at least one of the following: Automated exposure control, adjustment of the mA and/or kV according t o size, and the use of iterative reconstruction technique.
[2024-03-28] MEDS: VERSED IM STA (00:57)
[2024-03-28] MEDS: SODIUM CHLORIDE 1,000 ML IV SCH (03:01)
[2024-03-28 03:24] VITALS: BMI 28.6
[2024-03-28] MEDS: ZOSYN 3.375 GM 3.375 GM in SODIUM CHLORIDE 100ML 100 ML IV SCH (05:50)
[2024-03-28 05:52] LABS: BASOPHILS % (AUTO) 0.1 % (0.0-3.0); EOSINOPHILS % (AUTO) 0.6 % (0.0-7.0); HEMATOCRIT 30.5 % (42.0-52.0); HEMOGLOBIN 9.8 g/dl (14.0-18.0); IMMATURE GRANULOCYTE # (AUTO) 0.1 (0.0-1.0); IMMATURE GRANULOCYTE % (AUTO) 0.7 % (0.0-5.0); LYMPHOCYTES # (AUTO) 0.1 K/uL (0.60-3.4); LYMPHOCYTES % (AUTO) 1.8 (10.0-50.0); MEAN CORPUSCULAR HEMOGLOBIN 35.4 pg (27.0-31.0); MEAN CORPUSCULAR HGB CONC 32.1 (31.8-35.4); MEAN CORPUSCULAR VOLUME 110.1 fl (80.0-94.0); MONOCYTES # (AUTO) 0.3 K/uL (0.4-2.0); MONOCYTES % (AUTO) 4.4 (0-10); NEUTROPHILS # (AUTO) 6.2 K/ul (2.0-6.9); NEUTROPHILS % (AUTO) 92.4 % (42.2-75.2); PLATELET COUNT 98 10^3/uL (140-440); RDW COEFFICIENT OF VARIATION 13.4 % (11.6-14.8); RED BLOOD COUNT 2.77 10^6/ul (4.70-6.10); WHITE BLOOD COUNT 6.75 K/ul (4.2-10.2)
[2024-03-28 06:06] LABS: ALANINE AMINOTRANSFERASE 38.4 U/L (0-50); ALBUMIN 3.33 g/dL (3.5-5.0); ALKALINE PHOSPHATASE 119.7 U/L (56-119); ASPARTATE AMINO TRANSFERASE 29.7 U/L (17-59); BILIRUBIN,TOTAL 0.65 mg/dL (0.2-1.3); BLOOD UREA NITROGEN 21.5 mg/dL (9-20); CALCIUM 7.52 mg/dL (8.4-10.2); CARBON DIOXIDE 24.7 mmol/L (22-30.0); CHLORIDE 107.1 mmol/L (98-107); CREATININE 1.33 mg/dL (0.60-1.10); GLUCOSE 107.1 mg/dL (74-106); POTASSIUM 3.66 mmol/L (3.5-5.1); SODIUM 139.5 mmol/L (134.5-145); TOTAL PROTEIN 5.51 g/dL (6.3-8.2)
[2024-03-28] MEDS: TYLENOL RC PRN (08:14)
[2024-03-28] MEDS: LOVENOX SUBCUT SCH ×2 (08:21→20:50)
[2024-03-28] MEDS: LOPRESSOR IVP STA ×2 (09:42→11:08)
[2024-03-28] MEDS: LOVENOX SUBCUT ONE (11:41)
[2024-03-28 12:11] LABS: VBG HCO3 20.9 (22-26); VBG OXYGEN SATURATION 72.3 (60-80); VBG PH 7.45 (7.30-7.40)
[2024-03-28] MEDS: CARDIZEM INJ IVP ONE (14:25)
[2024-03-28] MEDS: CARDIZEM 125 MG in SODIUM CHLORIDE 100ML 100 ML IV SCH (16:41)
--- NOTE | 2024-03-28 17:00 | PCM ---
Date of Service Date Seen by Provider: 03/28/24 Time Seen by Provider: 08:50 Admit Day/Time Admission Date: 03/28/24 Admission Time: 01:36 Reason for Admission Chief Complaint: NAUSEA/VOMITTING, [facility] Hospital Provider Hospital Provider: ASAD FLEMING [facility]-C, [facility] Primary Care Physician Primary Care Physician: HEATH GABRIEL History of Present Illness History of Present Illness: Patient is a 78 year old male with pmhx of multiple myeloma (Dr. Hall), history of left CVA, hypertension, CAD/CABG, a fib on eliquis who comes from assisted living for increased agitation and diarrhea. Patient was found to be very agitated in the ER requiring haldol and zyprexa. CT chest, abd, pelvis, and head show no acute findings. He is positive for influenza A. He was initially given antibiotics for sepsis protocol. Patient admitted to [facility] This morning patient continues to be restless. Patient is febrile this morning. HR from 100-150s, a fib RVR. Pt unable to answer any questions appropriately. Limited ROS due to encephalopathy. Case Discussed With Case Discussed With: Patient's case was discussed with the ER Physicians, Dr. Coleman. [facility] Medical History Bleeding tendency D69.9 - Hemorrhagic condition, unspecified (ICD-10) Measles B05.9 - Measles without complication (ICD-10) Cancer C80.1 - Malignant (primary) neoplasm, unspecified (ICD-10) Hypertension I10 - Essential (primary) hypertension (ICD-10) Surgical History H/O kidney removal Z90.5 - Acquired absence of kidney (ICD-10) Knee joint replacement status Z96.659 - Presence of unspecified artificial knee joint (ICD-10) Previous back surgery Z98.890 - Other specified postprocedural states (ICD-10) Family History FATHER Asthma FATHER Diabetes Mother Diabetes Allergies Allergies Allergy/AdvReac Type Severity Reaction Status Date / Time morphine AdvReac forgetful Verified 08/30/18 07:24 Current Medications Home Medications Acetaminophen (Acetaminophen 650 Mg Supp.Rect) 650 mg RC Q4H PRN PRN Reason: Fever >101 Last Admin: 03/28/24 16:38 Dose: 650 mg Enoxaparin Sodium (Enoxaparin Sodium 100 Mg/Ml Syr) 80 mg SUBCUT Q12HR JAZZ Sodium Chloride (Sodium Chloride) 1,000 mls @ 75 mls/hr IV .[id number] JAZZ Last Admin: 03/28/24 16:35 Dose: 75 mls/hr Diltiazem HCl 125 mg/ Sodium (Chloride) 125 mls @ 5 mls/hr IV TITRATION JAZZ; Protocol Last Admin: 03/28/24 16:41 Dose: 5 mg/hr, 5 mls/hr Levalbuterol HCl (Levalbuterol Hcl 1.25 Mg/3 Ml Vial.Neb) 1.25 mg NEB RTQ6H PRN PRN Reason: Wheezing Sodium Chloride (0.9% Sodium Chloride 10 Ml Disp.Syrin) 1 syr IVF PRN PRN PRN Reason: To flush IV Last Admin: 03/27/24 21:05 Dose: 1 syr venlafaxine 75 mg tablet 75 mg PO DAILY 01/16/17 [History Confirmed 03/27/24] propranolol 60 mg tablet 1 tab PO DAILY 05/30/18 [History Confirmed 03/28/24] apixaban 5 mg tablet (Eliquis) 5 mg PO 2XD 03/28/24 [History Confirmed 03/28/24] dexamethasone 4 mg tablet 20 mg PO .03/28/24 [History Confirmed 06/16] diltiazem HCl 120 mg capsule,extended release 24 hr (Cardizem CD) 120 mg PO DAILY 03/28/24 [History Confirmed 03/28/24] diphenhydramine HCl 25 mg capsule (Benadryl) 25 mg PO .03/28/24 [History Confirmed 03/28/24] famotidine 20 mg tablet 20 mg PO .03/28/24 [History Confirmed 03/28/24] gabapentin 100 mg capsule 100 mg PO 3XD 03/28/24 [History Confirmed 03/28/24] lisinopril 20 mg tablet 20 mg PO 2XD 03/28/24 [History Confirmed 03/28/24] mirabegron 50 mg tablet,extended release 24 hr (Myrbetriq) 50 mg PO DAILY 03/28/24 [History Confirmed 03/28/24] montelukast 10 mg tablet 10 mg PO DAILY 03/28/24 [History Confirmed 03/28/24] pantoprazole 40 mg tablet,delayed release 40 mg PO 2XD 03/28/24 [History Confirmed 03/28/24] propranolol 160 mg capsule,24 hr,extended release (Inderal LA) 160 mg PO DAILY 03/28/24 [History Confirmed 03/28/24] propranolol 160 mg capsule,24 hr,extended release (Inderal LA) 160 mg PO DAILY 03/28/24 [History Confirmed 03/28/24] valacyclovir 500 mg tablet 500 mg PO 2XD 03/28/24 [History Confirmed 03/28/24] venlafaxine 75 mg capsule,extended release 24 hr 75 mg PO DAILY 03/28/24 [History Confirmed 03/28/24] Opioid Naive vs. Tolerant Does Patient Take Opioids?: No Is Patient Opioid Naive?: Yes What is Opioid Naive?: *Opioid Naive implies the patient is not already taking opioids or not chronically receiving opioids on a daily basis. *PRN dosing is not "usually" associated with tolerance. *Patients are at higher risk of over-sedation and aspiration. Is Patient Opioid Tolerant?: No What is Opioid Tolerant?: *Opioid Tolerance implies less than the expected response to an opioid. *Acquired tolerance is defined by the patient taking 60mg of oral morphine daily (or equianalgesic dose of another opioid) for 1 week or more. *Often associated with chronic pain. *May take more than usual dose to achieve desired pain control. Review of Systems Constitutional: Reports Fever and Fatigue Physical examination Most Recent Vital Signs: Most Recent Vital Signs Temperature 99.6 F 03/28/24 14:00 Temperature Source Tympanic 03/28/24 14:00 Temperature Source Tympanic 03/27/24 22:56 Pulse Rate 123 H 03/28/24 14:00 Respiratory Rate 36 H 03/28/24 14:00 Blood Pressure 137/96 H 03/28/24 14:00 Blood Pressure Mean 109 03/28/24 14:00 Blood Pressure Left Arm 134/87 03/28/24 02:59 Blood Pressure Location Left Arm 03/28/24 14:00 Blood Pressure Position Supine 03/28/24 14:00 O2 Sat by Pulse Oximetry 94 L 03/28/24 14:00 Oxygen Delivery Method Nasal Cannula 03/28/24 14:00 Oxygen Flow Rate 2 03/28/24 14:00 Height 5 ft 9 in 03/28/24 02:59 Weight 88 kg 03/28/24 02:59 Telemetry Type Remote Telemetry 03/28/24 13:00 Telemetry Monitoring Continues 03/28/24 13:00 Telemetry Heart Rate 124 H 03/28/24 13:00 Telemetry SPO2 90 L 03/28/24 07:00 EKG HI Interval 0.18 03/28/24 13:00 EKG QRS Interval 0.08 03/28/24 13:[address] 03/28/24 13:00 Appearance: Positive Other (+acutely ill, restless, doesn't answer questions appropriately ) Skin: Positive Inland, Warm and Good Turgor HEENT: Positive Normocephalic and Atraumatic Neck: Positive Supple and Midline Trachea Chest/Lungs: Positive Clear to Auscultation Bilaterally; Negative Rales, Rhonci or Wheezes Heart: Positive Irregular Rhythm and Tachycardia GI/: Positive Soft, Nontender, Bowel Sounds Normal and No Distention Extremities: Negative Edema Neurological: Positive Other (unable to assess, unable to follow direction ) Psychiatric: Positive Other (+disoriented ) Labs This Visit Labs This Visit: Labs This Visit 03/27/24 03/27/24 03/27/24 21:26 22:39 22:43 WBC 7.46 RBC 2.87 L Hgb 10.0 L Hct 32.0 L MCV 111.5 H MCH 34.8 H MCHC 31.3 L RDW Coeff of Margaret 13.4 Plt Count 102 L Immature Gran % (Auto) 0.7 Neut % (Auto) 91.9 H Lymph % (Auto) 2.0 L Geary % (Auto) 4.8 Eos % (Auto) 0.3 Baso % (Auto) 0.3 Neut # (Auto) 6.9 Lymph # (Auto) 0.2 L Geary # (Auto) 0.4 Eos # (Auto) 0.0 Baso # (Auto) 0.0 Immature Gran # (Auto) 0.1 ESR 35 H PT 11.2 H INR 1.08 VBG pH VBG pCO2 VBG pO2 VBG HCO3 VBG O2 Saturation Sodium 137.3 Potassium 3.54 Chloride 105.7 Carbon Dioxide 21.1 L Anion Gap 14.04 BUN 22.1 H Creatinine 1.29 H Estimated GFR (MDRD) 54.00 BUN/Creatinine Ratio 17.13 Glucose 125.9 H Lactic Acid 1.02 Calcium 7.60 L Total Bilirubin 0.72 AST 29.0 ALT 41.3 Alkaline Phosphatase 118.2 Troponin I 0.039 NT-Pro-B Natriuret Pep 2360 H Total Protein 5.39 L Albumin 3.29 L Globulin 2.10 Albumin/Globulin Ratio 1.56 Procalcitonin 0.25 H TSH 0.317 L Urine Color Urine Clarity Urine pH Ur Specific [place] Urine Protein Urine Glucose (UA) Urine Ketones Urine Blood Urine Nitrite Urine Bilirubin Urine Urobilinogen Ur Leukocyte Esterase Urine Microscopic RBC Urine Microscopic WBC Ur Squamous Epith Cells Urine Bacteria Urine Mucus Influ A Molecular Assay Positive by naat H Influ B Molecular Assay Negative by naat RSV Antigen Negative by naat SARS CoV-2 RNA Rapid DONN Negative 03/28/24 03/28/24 03/28/24 00:07 05:48 12:07 WBC 6.75 RBC 2.77 L Hgb 9.8 L Hct 30.5 L MCV 110.1 H MCH 35.4 H MCHC 32.1 RDW Coeff of Margaret 13.4 Plt Count 98 L Immature Gran % (Auto) 0.7 Neut % (Auto) 92.4 H Lymph % (Auto) 1.8 L Geary % (Auto) 4.4 Eos % (Auto) 0.6 Baso % (Auto) 0.1 Neut # (Auto) 6.2 Lymph # (Auto) 0.1 L Geary # (Auto) 0.3 L Eos # (Auto) 0.0 Baso # (Auto) 0.0 Immature Gran # (Auto) 0.1 ESR PT INR VBG pH 7.45 H VBG pCO2 30 L VBG pO2 36 VBG HCO3 20.9 L VBG O2 Saturation 72.3 Sodium 139.5 Potassium 3.66 Chloride 107.1 H Carbon Dioxide 24.7 Anion Gap 11.36 BUN 21.5 H Creatinine 1.33 H Estimated GFR (MDRD) 52.00 BUN/Creatinine Ratio 16.16 Glucose 107.1 H Lactic Acid Calcium 7.52 L Total Bilirubin 0.65 AST 29.7 ALT 38.4 Alkaline Phosphatase 119.7 H Troponin I NT-Pro-B Natriuret Pep Total Protein 5.51 L Albumin 3.33 L Globulin 2.18 Albumin/Globulin Ratio 1.52 Procalcitonin TSH Urine Color Yellow Urine Clarity Clear Urine pH 5.5 Ur Specific [place] 1.010 Urine Protein 1+ H Urine Glucose (UA) Negative Urine Ketones Trace H Urine Blood Trace-lysed Urine Nitrite Negative Urine Bilirubin Negative Urine Urobilinogen 0.2 Ur Leukocyte Esterase Negative Urine Microscopic RBC 2-5 Urine Microscopic WBC 2-5 Ur Squamous Epith Cells 0-2 Urine Bacteria Trace Urine Mucus Trace Influ A Molecular Assay Influ B Molecular Assay RSV Antigen SARS CoV-2 RNA Rapid DONN Imaging Imaging: EXAM: CHEST CTA WITH CONTRAST (PULMONARY ARTERY) HISTORY: Tachycardia, hypoxia. Rule out pulmonary embolus. TECHNIQUE: CTA acquisition of the chest from the thoracic inlet to the upper abdomen following IV contrast administration timed to filling of the pulmonary artery. 3D/MIP/VR images were utilized. COMPARISON: Chest radiograph 03/27/2024. FINDINGS: Lines, Tubes, Devices: None. Pulmonary arteries: - Diagnostic quality: Exam degraded by motion artifact such that nonocclusive segmental and subsegmental emboli cannot be excluded. - Central(Main/Lobar/Interlobar): No embolus. - Peripheral (Segmental/Subsegmental): No occlusive segmental embolus. - Right ventricle/Left ventricle ratio (normal <0.9): Normal. - Main pulmonary artery: Normal caliber. Lung Parenchyma, Pleura, and Airways: Central airways are patent. 5 mm left lower lobe nodule on axial image 49 of series 9. No pleural effusion. Thoracic Inlet, Mediastinum, and [place]: 1.2 cm left thyroid nodule, too small to warrant further evaluation. No lymphadenopathy. Heart, Vessels, and Pericardium: Normal caliber aorta. No visible coronary artery calcifications. No cariomegaly. No pericardial effusion. Bones and Soft Tissues: Diffuse osseous demineralization. Chronic compression fractures at T3 T7, T8, T10, T11, T12, L1, and L2. Status post vertebral augmen tation at L2. Chronic left rib fractures. Upper Abdomen: Multiple cysts in the liver. Post cholecystectomy. Right nephrectomy. Modest hiatal hernia. IMPRESSION: No occlusive segmental or central pulmonary embolus. Smaller emboli cannot be excluded due to motion. 5 mm nodule in the left lower lobe. Consider follow-up chest CT in 1 year. Diffuse osseous demineralization. Chronic vertebral body compression fractures at multiple levels. Hiatal hernia. EXAM: CHEST ONE-VIEW HISTORY: Altered mental status COMPARISON: None FINDINGS: There is prominence of the right hilum. The heart size is prominent. The pulmonary vasculature is normal. No consolidating infiltrates are detected. No pneumothoraces or pleural effusions. Old healed left rib fractures are noted. IMPRESSION: 1. No acute cardiopulmonary disease. 2. Prominent right hilum. Underlying malignancy not excluded. Recommend correlation with a CT of the chest. 3. Old healed left rib fractures. EXAM: CT BRAIN WITHOUT CONTRAST HISTORY: Altered mental status TECHNIQUE: CT of the brain without intravenous contrast. FINDINGS: There is no acute hemorrhage midline shift or mass effect. No hydrocephalus or abnormal extra-axial fluid collection. Left frontal encephalomalacia. Chronic microvascular change of the white matter tracts, mild. Multiple lucencies of the skull. The visualized paranasal sinuses are clear. Soft tissues without significant abnormality. IMPRESSION: 1. No acute intracranial abnormality. 2. Left frontal encephalomalacia from prior insult. 3. Multiple calvarial lucencies suspect for metastasis versus myeloma. EXAM: CT OF THE ABDOMEN AND PELVIS WITH CONTRAST TECHNIQUE: CT of the abdomen and pelvis was performed with contrast. Multiplanar reformats were performed. HISTORY: Altered mental status, fever. COMPARISON: None. FINDINGS: Imaged lower thorax: Unremarkable. Liver: Multiple cysts in the liver with benign appearance. Gallbladder/Bile Ducts: No biliary dilation. Post cholecystectomy. Spleen: Unremarkable. Pancreas: Unremarkable. Adrenals: Unremarkable. Kidneys/Ureters: Post right nephrectomy. Left kidney is unremarkable. Bowel/mesentery/peritoneum: Modest hiatal hernia. Normal appendix. No ascites or free air. Retroperitoneum/vessels: No aortic aneurysm. Scattered atherosclerotic calcifications. No adenopathy. Pelvis: Enlarged prostate. Bladder wall thickness is normal. Bilateral fat containing inguinal hernias. Bones/body wall: Diffuse osseous demineralization. Chronic compression fracture of L2 status post vertebral plasty. Chronic compression fractures of T10, T11, T12, at L1 as well. No acute fracture demonstrated. Moderate degenerative changes of the hips. IMPRESSION: No acute abnormality in the abdomen or pelvis. Chronic and postsurgical findings as above. Review Statement Review Statement: I have independently reviewed and interpreted the labs/EKGs/imaging that were ordered by the ER provider. I have reviewed all outside records that are available currently in our EMR including imaging/notes/labs from previous visits. Plan Plan: 1. Acute metabolic encephalopathy in setting of influenza A - NPO until mentation improves. Ct head negative for acute findings. ABG does not show CO2 retention. Check UDS. 2. Influenza A - Will start tamiflu when able to take PO. Xopenex prn. Isolation. Conservative measures. 3. A fib RVR - Has received 2 doses of metoprolol IV, cardizem IV, and now starting cardizem drip. Transition eliquis to lovenox due to NPO. Will restart home meds when able. Cont fluids. Treat fever. Check mag. 4. Hypertension - Holding home meds at this time 5. Multiple myeloma, chronic - Follows with Dr. Hall 6. Thrombocytopenia - likely due to acute illness. Will monitor with lovenox. Reviewing [facility] records, pt has had multiple hospitalizations in the past due to AMS. On 01/02-01/06 he was admitted for AMS, hypoxia, pulmonary edema, hypertensive emergency, and was intubated. 01/14 -01/17 he was admitted for AMS and sinusitis. DVT Prophylaxis: Lovenox Time Spent: Greater than 80 minutes spent with patient, 50% of the time spent with this patient was devoted to counseling and coordination of care. Advanced Care Planning: unable to discuss with patient. Per ER note, pt is DNR/DNI per son. Admit to: Inpatient Discussed Plan of Care with Dr. Barrie Sandoval. Medications Medication Orders: Medications Ordered Category Date Time Status 0.9 % Sodium Chloride [Saline Flush] Meds 03/27/24 20:36 Active 1 syr IVF PRN PRN Acetaminophen [Tylenol] Meds 03/28/24 07:49 Active 650 mg RC Q4H PRN Diltiazem HCl [Cardizem] 125 mg Meds 03/28/24 16:30 Active 0.9 % Sodium Chloride [Sodium Chloride 100Ml] 100 ml IV TITRATION Enoxaparin Sodium [Lovenox] Meds 03/28/24 21:00 Active 80 mg SUBCUT Q12HR Sodium Chloride 0.9% [Sodium Chloride] 1,000 ml Meds 03/28/24 02:00 Active IV 75 mls/hr
[2024-03-28] MEDS ORDERED: ZYPREXA IM PRN (18:29)
[2024-03-28] MEDS: MAGNESIUM SULF 2 G/50 ML BAG 2 GM/50 ML PIGGYBACK IV ONE (20:49)
[2024-03-29] MEDS: ZYPREXA IM PRN (00:39)
[2024-03-29 02:29] LABS: AMPHETAMINE SCREEN,URINE NEGATIVE (NEGATIVE); BARBITURATE SCREEN,URINE NEGATIVE (NEGATIVE); BENZODIAZEPINES SCREEN,URINE NEGATIVE (NEGATIVE); CANNABINOID SCREEN,URINE POSITIVE (NEGATIVE); COCAIN SCREEN,URINE NEGATIVE (NEGATIVE); METHADONE URINE SCREEN NEGATIVE (NEGATIVE); METHAMPHETAMINES SCREEN,URINE NEGATIVE (NEGATIVE); OPIATE SCREEN,URINE NEGATIVE (NEGATIVE); OXYCODONE URINE SCREEN NEGATIVE (NEGATIVE); PHENCYCLIDINE SCREEN,URINE NEGATIVE (NEGATIVE); TRICYCLIC ANTIDEPRESSANTS URIN NEGATIVE (NEGATIVE)
[2024-03-29 05:55] LABS: BASOPHILS % (AUTO) 0.2 % (0.0-3.0); EOSINOPHILS % (AUTO) 0.3 % (0.0-7.0); HEMATOCRIT 32.1 % (42.0-52.0); HEMOGLOBIN 9.9 g/dl (14.0-18.0); IMMATURE GRANULOCYTE % (AUTO) 0.6 % (0.0-5.0); LYMPHOCYTES # (AUTO) 0.2 K/uL (0.60-3.4); LYMPHOCYTES % (AUTO) 3.9 (10.0-50.0); MEAN CORPUSCULAR HEMOGLOBIN 34.6 pg (27.0-31.0); MEAN CORPUSCULAR HGB CONC 30.8 (31.8-35.4); MEAN CORPUSCULAR VOLUME 112.2 fl (80.0-94.0); MONOCYTES # (AUTO) 0.3 K/uL (0.4-2.0); MONOCYTES % (AUTO) 5.5 (0-10); NEUTROPHILS # (AUTO) 5.6 K/ul (2.0-6.9); NEUTROPHILS % (AUTO) 89.5 % (42.2-75.2); PLATELET COUNT 102 10^3/uL (140-440); RDW COEFFICIENT OF VARIATION 13.5 % (11.6-14.8); RED BLOOD COUNT 2.86 10^6/ul (4.70-6.10); WHITE BLOOD COUNT 6.21 K/ul (4.2-10.2)
[2024-03-29 06:07] LABS: ALANINE AMINOTRANSFERASE 32.2 U/L (0-50); ALBUMIN 3.29 g/dL (3.5-5.0); ALKALINE PHOSPHATASE 103.9 U/L (56-119); ASPARTATE AMINO TRANSFERASE 35.1 U/L (17-59); BILIRUBIN,TOTAL 0.67 mg/dL (0.2-1.3); BLOOD UREA NITROGEN 18.7 mg/dL (9-20); CALCIUM 7.32 mg/dL (8.4-10.2); CARBON DIOXIDE 21.8 mmol/L (22-30.0); CHLORIDE 108.8 mmol/L (98-107); CREATININE 1.23 mg/dL (0.60-1.10); GLUCOSE 102.1 mg/dL (74-106); MAGNESIUM 2.19 mg/dL (1.6-2.3); POTASSIUM 3.42 mmol/L (3.5-5.1); SODIUM 141.7 mmol/L (134.5-145); TOTAL PROTEIN 5.7 g/dL (6.3-8.2)
[2024-03-29] MEDS: POTASSIUM CHLORIDE 20 MEQ/100 ML PREMIX 40 MEQ/200 ML BAG IV ONE (09:32)
--- NOTE | 2024-03-29 11:28 | PCM.PROG ---
Date/Time Seen Date Seen by Provider: 03/29/24 Time Seen by Provider: 08:20 Provider Provider: ASAD FLEMING PA-C, [facility] Chief Complaint Chief Complaint: NAUSEA/VOMITTING, AMS Subjective Subjective: Patient continues to be in a fib rvr despite maxing out cardizem drip. He continues to be confused, pulling at his gown and wires, grabbing at staff. Unable to answer questions appropriately. Received zyprexa through the night. Objective Appearance: Positive No Apparent Distress and Other (+disoriented, sitting at the side of the bed naked and coughing. ) Chest/Lungs: Positive Clear to Auscultation Bilaterally; Negative Rales, Rhonci or Wheezes Heart: Positive Irregular Rhythm and Tachycardia GI/: Positive Soft, Nontender, Bowel Sounds Normal and No Distention Neurological: Positive Disorinted and Other (+unable to fully assess, patient isn't following commands ) Vital Signs Vital Signs: Vital Signs: Last 24 Hours 03/28/24 13:00 03/28/24 13:29 03/28/24 14:00 Temperature 99.6 F Temperature Source Tympanic Pulse Rate 123 H Respiratory Rate 36 H Blood Pressure 137/96 H Blood Pressure Mean 109 Blood Pressure Location Left Arm Blood Pressure Position Supine O2 Sat by Pulse Oximetry 94 L Oxygen Delivery Method Nasal Cannula Nasal Cannula Oxygen Flow Rate 2 2 Telemetry Type Remote Telemetry Telemetry Monitoring Continues Telemetry Heart Rate 124 H EKG CO Interval 0.18 EKG QRS Interval 0.[address] 03/28/24 17:49 03/28/24 19:00 03/28/24 20:00 Temperature 98.6 F Temperature Source Tympanic Pulse Rate 141 H Respiratory Rate 33 H 30 H Blood Pressure 148/94 H Blood Pressure Mean 112 Blood Pressure Location Left Arm Blood Pressure Position Supine O2 Sat by Pulse Oximetry 94 L Oxygen Delivery Method Nasal Cannula Nasal Cannula Oxygen Flow Rate 2 2 Telemetry Type Remote Telemetry Telemetry Monitoring Continues Telemetry Heart Rate 105 H EKG CO Interval 0.20 EKG QRS Interval 0.[address] 03/28/24 20:00 03/28/24 21:43 03/29/24 01:00 Temperature 99.3 F Temperature Source Temporal Artery Scan Pulse Rate 125 H Respiratory Rate 26 H Blood Pressure 109/79 Blood Pressure Mean 89 Blood Pressure Location Left Arm Blood Pressure Position Supine O2 Sat by Pulse Oximetry 2 L 92 L Oxygen Delivery Method Nasal Cannula Room Air Oxygen Flow Rate 2 Telemetry Type Remote Telemetry Telemetry Monitoring Continues Telemetry Heart Rate 102 H EKG CO Interval 0.16 EKG QRS Interval 0.[address] with frequebt pac's 03/29/24 02:00 03/29/24 05:17 03/29/24 09:56 Temperature 99.3 F 99.3 F Temperature Source Temporal Artery Scan Oral Pulse Rate 110 H 109 H Respiratory Rate 28 H 16 Blood Pressure 127/65 125/79 Blood Pressure Mean 85 94 Blood Pressure Location Left Arm Left Arm Blood Pressure Position Supine Supine O2 Sat by Pulse Oximetry 91 L 90 L 91 L Oxygen Delivery Method Room Air Room Air Nasal Cannula Oxygen Flow Rate 2 Telemetry Type Telemetry Monitoring Telemetry Heart Rate EKG CO Interval EKG QRS Interval Telemetry Strip Reading 03/29/24 10:00 Temperature 98.8 F Temperature Source Temporal Artery Scan Pulse Rate 104 H Respiratory Rate 36 H Blood Pressure 132/93 H Blood Pressure Mean 106 Blood Pressure Location Right Arm Blood Pressure Position O2 Sat by Pulse Oximetry 94 L Oxygen Delivery Method Nasal Cannula Oxygen Flow Rate 2 Telemetry Type Telemetry Monitoring Telemetry Heart Rate EKG CO Interval EKG QRS Interval Telemetry Strip Reading Lab Results Lab Results: Lab Results: Last 24 Hours 03/29/24 03/29/24 03/28/24 05:37 02:05 17:18 WBC 6.21 RBC 2.86 L Hgb 9.9 L Hct 32.1 L MCV 112.2 H MCH 34.6 H MCHC 30.8 L RDW Coeff of Margaret 13.5 Plt Count 102 L Immature Gran % (Auto) 0.6 Neut % (Auto) 89.5 H Lymph % (Auto) 3.9 L Taylor % (Auto) 5.5 Eos % (Auto) 0.3 Baso % (Auto) 0.2 Neut # (Auto) 5.6 Lymph # (Auto) 0.2 L Taylor # (Auto) 0.3 L Eos # (Auto) 0.0 Baso # (Auto) 0.0 Immature Gran # (Auto) 0.0 VBG pH VBG pCO2 VBG pO2 VBG HCO3 VBG O2 Saturation Sodium 141.7 Potassium 3.42 L Chloride 108.8 H Carbon Dioxide 21.8 L Anion Gap 14.52 BUN 18.7 Creatinine 1.23 H Estimated GFR (MDRD) 57.00 BUN/Creatinine Ratio 15.20 Glucose 102.1 Calcium 7.32 L Magnesium 2.19 1.48 L Total Bilirubin 0.67 AST 35.1 ALT 32.2 Alkaline Phosphatase 103.9 C-Reactive Prot, Quant Total Protein 5.70 L Albumin 3.29 L Globulin 2.41 Albumin/Globulin Ratio 1.36 Urine Opiates Screen Negative Ur Oxycodone Screen Negative Urine Methadone Screen Negative Ur Barbiturates Screen Negative U Tricyclic Antidepress Negative Ur Phencyclidine Scrn Negative Ur Amphetamine Screen Negative U Methamphetamines Scrn Negative U Benzodiazepines Scrn Negative Urine Cocaine Screen Negative U Cannabinoids Screen Positive H 03/28/24 03/27/24 12:07 20:40 WBC RBC Hgb Hct MCV MCH MCHC RDW Coeff of Margaret Plt Count Immature Gran % (Auto) Neut % (Auto) Lymph % (Auto) Taylor % (Auto) Eos % (Auto) Baso % (Auto) Neut # (Auto) Lymph # (Auto) Taylor # (Auto) Eos # (Auto) Baso # (Auto) Immature Gran # (Auto) VBG pH 7.45 H VBG pCO2 30 L VBG pO2 36 VBG HCO3 20.9 L VBG O2 Saturation 72.3 Sodium Potassium Chloride Carbon Dioxide Anion Gap BUN Creatinine Estimated GFR (MDRD) BUN/Creatinine Ratio Glucose Calcium Magnesium Total Bilirubin AST ALT Alkaline Phosphatase C-Reactive Prot, Quant 57 H Total Protein Albumin Globulin Albumin/Globulin Ratio Urine Opiates Screen Ur Oxycodone Screen Urine Methadone Screen Ur Barbiturates Screen U Tricyclic Antidepress Ur Phencyclidine Scrn Ur Amphetamine Screen U Methamphetamines Scrn U Benzodiazepines Scrn Urine Cocaine Screen U Cannabinoids Screen Additional Comments Additional Comments: I have independently reviewed and interpreted the labs/EKGs/imaging ordered during this hospital stay. I have reviewed outside records that are available in our EMR that pertain to medical stay including imaging/notes/labs from previous visits. Active Medications Active Medications: Medications Generic Name Dose Route Start Last Admin Trade Name Freq PRN Reason Stop Dose Admin Acetaminophen 650 mg 03/28/24 07:49 03/28/24 16:38 Acetaminophen 650 Mg Supp.Rect RC 650 mg Q4H PRN Administration Fever >101 Enoxaparin Sodium 80 mg 03/28/24 21:00 03/29/24 09:32 Enoxaparin Sodium 100 Mg/Ml Syr SUBCUT 80 mg Q12HR JAZZ Administration Diltiazem HCl 125 mg/ Sodium 125 mls @ 5 mls/hr 03/28/24 16:30 03/29/24 02:49 Chloride IV 15 mg/hr TITRATION JAZZ 15 mls/hr Administration Protocol 5 MG/HR Potassium Chloride 40 meq in 200 mls @ 50 mls/hr 03/29/24 08:29 03/29/24 09:32 Potassium Chloride 20 Meq/100 Ml Premix IV 03/29/24 12:28 50 mls/hr ONCE ONE Administration Levalbuterol HCl 1.25 mg 03/28/24 17:09 Levalbuterol Hcl 1.25 Mg/3 Ml Vial.Neb NEB RTQ6H PRN Wheezing Olanzapine 5 mg 03/28/24 21:49 03/29/24 00:39 Olanzapine 10 Mg Vial IM 5 mg Q6HR PRN Administration Agitation Sodium Chloride 1 syr 03/27/24 20:36 03/27/24 21:05 0.9% Sodium Chloride 10 Ml Disp.Syrin IVF 1 syr PRN PRN Administration To flush IV Plan Plan: 1. Acute metabolic encephalopathy in setting of influenza A - NPO until mentation improves. Accuchecks q6hrs. Ct head negative for acute findings. ABG does not show CO2 retention. UDS positive for thc. 2. Influenza A - Will start tamiflu when able to take PO. Xopenex prn. Isolation. Conservative measures. 3. A fib RVR - Continue cardizem drip, add lopressor 2.5 mg ivp q6hrs for better HR control. Continue lovenox due to NPO. Will restart home meds when able. Stop fluids. Treat fever. 4. Hypertension - Holding home meds at this time 5. Multiple myeloma, chronic - Follows with Dr. Hall 6. Thrombocytopenia - likely due to acute illness. Will monitor with lovenox. 7. Hypokalemia - replaced, goal of 4 8. Hypomagnesemia - replaced and resolved, now at 2 DVT: Lovenox Dispo: continues to be confused and unable to return to home setting at this time. Discussed plan of care with Dr. Barrie Sandoval. Review Statement Review Statement: I have personally discussed and reviewed the patient's visit/currently labs/imaging/decision making with Dr. Sandoval, my supervising attending. Greater that 50 minutes spent with patient, 50% of the time spent with this patient was devoted to counseling and coordination of care.
[2024-03-29] MEDS: LOPRESSOR IVP SCH (12:17)
[2024-03-30 05:48] LABS: BASOPHILS % (AUTO) 0.2 % (0.0-3.0); EOSINOPHILS % (AUTO) 0.2 % (0.0-7.0); HEMATOCRIT 31.8 % (42.0-52.0); HEMOGLOBIN 9.8 g/dl (14.0-18.0); IMMATURE GRANULOCYTE % (AUTO) 0.5 % (0.0-5.0); LYMPHOCYTES # (AUTO) 0.2 K/uL (0.60-3.4); LYMPHOCYTES % (AUTO) 3.6 (10.0-50.0); MEAN CORPUSCULAR HEMOGLOBIN 34.5 pg (27.0-31.0); MEAN CORPUSCULAR HGB CONC 30.8 (31.8-35.4); MONOCYTES # (AUTO) 0.4 K/uL (0.4-2.0); MONOCYTES % (AUTO) 8.5 (0-10); NEUTROPHILS # (AUTO) 3.6 K/ul (2.0-6.9); PLATELET COUNT 106 10^3/uL (140-440); RDW COEFFICIENT OF VARIATION 13.6 % (11.6-14.8); RED BLOOD COUNT 2.84 10^6/ul (4.70-6.10); WHITE BLOOD COUNT 4.11 K/ul (4.2-10.2)
[2024-03-30 05:55] LABS: ALANINE AMINOTRANSFERASE 28.1 U/L (0-50); ALBUMIN 3.22 g/dL (3.5-5.0); ALKALINE PHOSPHATASE 99.7 U/L (56-119); ASPARTATE AMINO TRANSFERASE 39.9 U/L (17-59); BILIRUBIN,TOTAL 0.39 mg/dL (0.2-1.3); BLOOD UREA NITROGEN 19.6 mg/dL (9-20); CALCIUM 7.04 mg/dL (8.4-10.2); CARBON DIOXIDE 24.7 mmol/L (22-30.0); CREATININE 1.29 mg/dL (0.60-1.10); GLUCOSE 116.5 mg/dL (74-106); MAGNESIUM 2.02 mg/dL (1.6-2.3); POTASSIUM 3.14 mmol/L (3.5-5.1); SODIUM 144.1 mmol/L (134.5-145); TOTAL PROTEIN 5.58 g/dL (6.3-8.2)
[2024-03-30] MEDS: POTASSIUM CHLORIDE 20 MEQ/100 ML PREMIX 20 MEQ/100 ML BAG IV ONE ×2 (09:13→12:45)
--- NOTE | 2024-03-30 13:02 | PCM.PROG ---
Date/Time Seen Date Seen by Provider: 03/30/24 Time Seen by Provider: 09:50 Provider Provider: ASAD FLEMING PA-C, [facility] Chief Complaint Chief Complaint: NAUSEA/VOMITTING, AMS Subjective Subjective: Patient's mentation is not at baseline but does seem much improved today. He's sitting up in the bed, and later in the chair, interacting. He is still very confused and oriented to person only. HR has been better managed on cardizem drip and iv lopressor. Planning to transition today after cleared by ST to take pills. Objective Appearance: Positive No Apparent Distress and Other (+disoriented, sitting at the side of the bed naked and coughing. ) Chest/Lungs: Positive Clear to Auscultation Bilaterally; Negative Rales, Rhonci or Wheezes Heart: Positive Irregular Rhythm and Tachycardia GI/: Positive Soft, Nontender, Bowel Sounds Normal and No Distention Neurological: Positive Disorinted (improved, oriented to self only) and Other (+unable to fully assess, patient isn't following commands ) Vital Signs Vital Signs: Vital Signs: Last 24 Hours 03/29/24 14:00 03/29/24 14:00 03/29/24 17:56 Temperature 98.5 F 98.6 F Temperature Source Temporal Artery Scan Temporal Artery Scan Pulse Rate 88 86 Respiratory Rate 33 H 20 Blood Pressure 126/81 135/83 Blood Pressure Mean 96 100 Blood Pressure Location Right Arm Right Arm Blood Pressure Position O2 Sat by Pulse Oximetry 95 95 Oxygen Delivery Method Nasal Cannula Room Air Nasal Cannula Oxygen Flow Rate 2 2 Telemetry Type Telemetry Monitoring Irregular Telemetry Rate (Approximate) Telemetry Heart Rate Telemetry SPO2 EKG QRS Interval Telemetry Strip Reading 03/29/24 19:00 03/29/24 20:00 03/29/24 20:00 Temperature Temperature Source Pulse Rate Respiratory Rate Blood Pressure Blood Pressure Mean Blood Pressure Location Blood Pressure Position O2 Sat by Pulse Oximetry 92 L Oxygen Delivery Method Room Air Nasal Cannula Oxygen Flow Rate 2 Telemetry Type Bedside Monitor Telemetry Monitoring Continues Irregular Telemetry Rate (Approximate) Telemetry Heart Rate 94 Telemetry SPO2 96 EKG QRS Interval 0.09 Telemetry Strip Reading Atrial Fib 03/29/24 21:15 03/30/24 01:00 03/30/24 02:00 Temperature 98.9 F 98.6 F Temperature Source Temporal Artery Scan Temporal Artery Scan Pulse Rate 94 100 Respiratory Rate 23 H 26 H Blood Pressure 133/90 124/76 Blood Pressure Mean 104 92 Blood Pressure Location Right Arm Right Arm Blood Pressure Position Supine Supine O2 Sat by Pulse Oximetry 97 93 L Oxygen Delivery Method Room Air Room Air Oxygen Flow Rate Telemetry Type Bedside Monitor Telemetry Monitoring Continues Irregular Telemetry Rate (Approximate) 80-90 BPM Telemetry Heart Rate 86 Telemetry SPO2 91 L EKG QRS Interval 0.09 Telemetry Strip Reading AFIB 03/30/24 05:34 03/30/24 05:38 03/30/24 07:00 Temperature 99.3 F Temperature Source Temporal Artery Scan Pulse Rate 85 Respiratory Rate 22 H Blood Pressure 137/82 Blood Pressure Mean 100 Blood Pressure Location Right Arm Blood Pressure Position Supine O2 Sat by Pulse Oximetry 95 95 Oxygen Delivery Method Nasal Cannula Nasal Cannula Oxygen Flow Rate 2 2 Telemetry Type Remote Telemetry Telemetry Monitoring Continues Irregular Telemetry Rate (Approximate) 80-90 BPM Telemetry Heart Rate Telemetry SPO2 95 EKG QRS Interval 0.09 Telemetry Strip Reading Atrial Fib 03/30/24 08:15 03/30/24 10:00 Temperature 98.4 F Temperature Source Temporal Artery Scan Pulse Rate 110 H Respiratory Rate 30 H 24 H Blood Pressure 117/79 Blood Pressure Mean 91 Blood Pressure Location Right Arm Blood Pressure Position O2 Sat by Pulse Oximetry 91 L Oxygen Delivery Method Nasal Cannula Nasal Cannula Oxygen Flow Rate 2 Telemetry Type Telemetry Monitoring Irregular Telemetry Rate (Approximate) Telemetry Heart Rate Telemetry SPO2 EKG QRS Interval Telemetry Strip Reading Lab Results Lab Results: Lab Results: Last 24 Hours 03/30/24 05:34 WBC 4.11 L RBC 2.84 L Hgb 9.8 L Hct 31.8 L MCV 112.0 H MCH 34.5 H MCHC 30.8 L RDW Coeff of Margaret 13.6 Plt Count 106 L Immature Gran % (Auto) 0.5 Neut % (Auto) 87.0 H Lymph % (Auto) 3.6 L Davidson % (Auto) 8.5 Eos % (Auto) 0.2 Baso % (Auto) 0.2 Neut # (Auto) 3.6 Lymph # (Auto) 0.2 L Davidson # (Auto) 0.4 Eos # (Auto) 0.0 Baso # (Auto) 0.0 Immature Gran # (Auto) 0.0 Sodium 144.1 Potassium 3.14 L Chloride 110.0 H Carbon Dioxide 24.7 Anion Gap 12.54 BUN 19.6 Creatinine 1.29 H Estimated GFR (MDRD) 54.00 BUN/Creatinine Ratio 15.19 Glucose 116.5 H Calcium 7.04 L Magnesium 2.02 Total Bilirubin 0.39 AST 39.9 ALT 28.1 Alkaline Phosphatase 99.7 Total Protein 5.58 L Albumin 3.22 L Globulin 2.36 Albumin/Globulin Ratio 1.36 Additional Comments Additional Comments: I have independently reviewed and interpreted the labs/EKGs/imaging ordered during this hospital stay. I have reviewed outside records that are available in our EMR that pertain to medical stay including imaging/notes/labs from previous visits. Active Medications Active Medications: Medications Generic Name Dose Route Start Last Admin Trade Name Freq PRN Reason Stop Dose Admin Acetaminophen 650 mg 03/28/24 07:49 03/28/24 16:38 Acetaminophen 650 Mg Supp.Rect RC 650 mg Q4H PRN Administration Fever >101 Apixaban 5 mg 03/30/24 21:00 Apixaban 5 Mg Tab PO 2XD JAZZ Diltiazem HCl 60 mg 03/30/24 12:50 Diltiazem Hcl 60 Mg Tablet PO Q6HR JAZZ Enoxaparin Sodium 80 mg 03/28/24 21:00 03/30/24 09:12 Enoxaparin Sodium 100 Mg/Ml Syr SUBCUT 80 mg Q12HR JAZZ Administration Diltiazem HCl 125 mg/ Sodium 125 mls @ 5 mls/hr 03/28/24 16:30 03/30/24 07:32 Chloride IV 15 mg/hr TITRATION JAZZ 15 mls/hr Administration Protocol 5 MG/HR Levalbuterol HCl 1.25 mg 03/28/24 17:09 Levalbuterol Hcl 1.25 Mg/3 Ml Vial.Neb NEB RTQ6H PRN Wheezing Loperamide HCl 2 mg 03/30/24 12:52 Loperamide Hcl 2 Mg Tablet PO AFTER LOOSE STOOLS PRN Diarrhea Metoprolol Tartrate 2.5 mg 03/29/24 12:00 03/30/24 12:45 Metoprolol Tartrate 5 Mg/5 Ml Vial IVP 2.5 mg Q6HR JAZZ Administration Mirabegron 50 mg 03/30/24 12:50 Mirabegron 25 Mg Tab.Er.24h PO DAILY JAZZ Olanzapine 5 mg 03/28/24 21:49 03/29/24 09:32 Olanzapine 10 Mg Vial IM 5 mg Q6HR PRN Administration Agitation Pantoprazole Sodium 40 mg 03/30/24 12:50 Pantoprazole Sodium 40 Mg Tablet.Dr PO BIDAC2 JAZZ Sodium Chloride 1 syr 03/27/24 20:36 03/27/24 21:05 0.9% Sodium Chloride 10 Ml Disp.Syrin IVF 1 syr PRN PRN Administration To flush IV Venlafaxine HCl 75 mg 03/30/24 12:50 Venlafaxine Hcl 75 Mg Cap.Er.24h PO DAILY JAZZ Plan Plan: 1. Acute metabolic encephalopathy in setting of influenza A - Improving. Transition to oral meds today. Stop accuchecks. 2. Influenza A - Start tamiflu. Xopenex prn. Isolation. Conservative measures. 3. A fib RVR - Transition to oral cardizem, stop drip 1 hour after first dose. If doing well this evening, will transition to his beta matt as well and stop the IV lopressor. 4. Hypertension - Holding lisinopril 5. Multiple myeloma, chronic - Follows with Dr. Hall 6. Thrombocytopenia - likely due to acute illness. 7. Hypokalemia - replaced, goal of 4 8. Hypomagnesemia - replaced and resolved, now at 2 DVT: Eliquis Dispo: continues to be confused and unable to return to home setting at this time. Today he is improved. May need to consider rehab via tn vs swingbed Discussed plan of care with Dr. Barrie Sandoval. Review Statement Review Statement: I have personally discussed and reviewed the patient's visit/currently labs/imaging/decision making with Dr. Sandoval, my supervising attending. Greater that 50 minutes spent with patient, 50% of the time spent with this patient was devoted to counseling and coordination of care.
[2024-03-30] MEDS: CARDIZEM PO SCH (13:12)
[2024-03-30] MEDS: IMODIUM PO PRN (13:12)
[2024-03-30] MEDS: PROTONIX PO SCH (13:12)
[2024-03-30] MEDS: EFFEXOR XR PO SCH (13:12)
[2024-03-30] MEDS: MYRBETRIQ PO SCH (13:12)
[2024-03-30] MEDS: TAMIFLU CAPSULE PO SCH (13:54)
--- NOTE | 2024-03-30 15:17 | RS.SWEVAL ---
Subjective Date of Evaluation: 03/30/24 Date of Onset/Injury/Change in Status: 03/30/24 Diagnosis: altered mental status Prior Level of Function.....Patient was independent with: ADL's and Self Care Current Level of Function: Patient is 78 yr old male that is in the hospital due to FLU A and altered mental status. Current Diet: clear liquid diet Current Subjective/complaints:: Physician requested bedside swallow eval to assess pt's ability to swallow food and pills. Oral-Facial Assessment Comments/Additional Info. Comments:: Could not complete full OME due to lack of ability to follow directions. Oral structures observed during feeding. Food Presentation Solids Food Presented: Pureed Behaviors/Comments: no difficulty noted Food Presented: Chopped (minced and moist) Behaviors/Comments: no difficulty noted with consistency Food Presented: Mechanical Soft (sandwich) Behaviors/Comments: small bites: no difficulty noted Liquids Liquid Presented: Thin Behaviors/Comments: tolerated well, no s/s of aspiration noted Recommendations: Dysphagia Evaluation Dietary Recommendations: Minced and Moist and Thin Dysphagia Swallow Precautions/Strategies: Sitting Upright (90 deg) and Small Bites and Sips Summary Dysphagia Evaluation Summary: Patient tolerated consistencies. He did present with difficulty feeding self. He did required prompts to take bites. He was also observed to become short winded and wheezy during the meal. He did not consume a large amount. His stamina was poor. Recommend minced and moist to encourage safety and maximize intake. Further Therapy Indicated?: Yes Comments: Follow as needed to upgrade diet as tolerated. Rehab Potential: Good Short Term Goals Goal #1: Tolerate minced and moist diet. Goal to be met by: 04/05/24 Goal #2: Tolerate regular diet. Goal to be met by: 04/05/24 Roofing Laborer Goals Goal #1: Tolerate least restrictive diet to safely meet nutrition/hydration. Goal to be met by: 04/05/24 Plan Treatment Code (1) Dysphagia: Code(s): R13.10 - Dysphagia, unspecified Qualifiers: Dysphagia type: oropharyngeal phase Qualified Code(s): R13.12 - Dysphagia, oropharyngeal phase
[2024-03-30] MEDS: ELIQUIS PO SCH (20:47)
[2024-03-30] MEDS: INDERAL PO ONE (22:02)
[2024-03-31] MEDS: XOPENEX 1.25 MG NEB PRN (05:35)
[2024-03-31] MEDS: LACTATED RINGERS 1,000 ML IV ONE (06:00)
[2024-03-31 06:31] LABS: HEMATOCRIT 29.4 % (42.0-52.0); HEMOGLOBIN 8.9 g/dl (14.0-18.0); IMMATURE GRANULOCYTE % (AUTO) 0.6 % (0.0-5.0); LYMPHOCYTES # (AUTO) 0.2 K/uL (0.60-3.4); LYMPHOCYTES % (AUTO) 3.2 (10.0-50.0); MEAN CORPUSCULAR HEMOGLOBIN 34.5 pg (27.0-31.0); MEAN CORPUSCULAR HGB CONC 30.3 (31.8-35.4); MONOCYTES # (AUTO) 0.3 K/uL (0.4-2.0); NEUTROPHILS # (AUTO) 4.2 K/ul (2.0-6.9); NEUTROPHILS % (AUTO) 90.2 % (42.2-75.2); PLATELET COUNT 91 10^3/uL (140-440); RED BLOOD COUNT 2.58 10^6/ul (4.70-6.10); WHITE BLOOD COUNT 4.64 K/ul (4.2-10.2)
[2024-03-31 06:45] LABS: ALANINE AMINOTRANSFERASE 24.4 U/L (0-50); ALBUMIN 2.98 g/dL (3.5-5.0); ALKALINE PHOSPHATASE 83.3 U/L (56-119); ASPARTATE AMINO TRANSFERASE 41.6 U/L (17-59); BILIRUBIN,TOTAL 0.58 mg/dL (0.2-1.3); BLOOD UREA NITROGEN 38.2 mg/dL (9-20); CALCIUM 6.65 mg/dL (8.4-10.2); CHLORIDE 109.4 mmol/L (98-107); SODIUM 139.4 mmol/L (134.5-145); TOTAL PROTEIN 5.25 g/dL (6.3-8.2)
[2024-03-31 06:58] LABS: CREATININE 3.37 mg/dL (0.60-1.10)
[2024-03-31] MEDS: SOLU-MEDROL 40 MG IVP SCH (11:30)
--- NOTE | 2024-03-31 11:40 | PCM.PROG ---
Date/Time Seen Date Seen by Provider: 03/31/24 Time Seen by Provider: 08:20 Provider Provider: ASAD [facility]LEMING [facility] Chief Complaint Chief Complaint: NAUSEA/VOMITTING, AMS Subjective Subjective: Patient is much improved clinically. His mentation is significantly improved in last 24=48 hours. He is now conversational. Pt became bradycardic and hypotensive overnight. Renal function worse today. Objective Appearance: Positive No Apparent Distress and Other (+alert, oriented to person, place, and somewhat to situation. Answering questions appropriately. ) Chest/Lungs: Positive Symmetrical With Equal Breath Sounds and Wheezes (rohit); Negative Rales or Rhonci Heart: Positive Irregular Rhythm and Bracycardia GI/: Positive Soft, Nontender, Bowel Sounds Normal and No Distention Neurological: Positive Cranial Nerves Intact, Alert, Oriented and Other (+generalized weakness ) Vital Signs Vital Signs: Vital Signs: Last 24 Hours 03/30/24 13:00 03/30/24 14:00 03/30/24 14:00 Temperature 98.2 F Temperature Source Temporal Artery Scan Pulse Rate 83 Respiratory Rate 22 H Blood Pressure 102/56 L Blood Pressure Mean 71 Blood Pressure Location Left Arm Blood Pressure Position O2 Sat by Pulse Oximetry 91 L Oxygen Delivery Method Room Air Nasal Cannula Oxygen Flow Rate 2 Telemetry Type Remote Telemetry Telemetry Monitoring Continues Irregular Telemetry Rate (Approximate) 60's Telemetry Heart Rate Telemetry SPO2 91 L EKG MI Interval EKG QRS Interval 0.08 Telemetry Strip Reading Atrial flutter with variable ventricular response 03/30/24 18:00 03/30/24 19:00 03/30/24 19:41 Temperature 98.3 F Temperature Source Temporal Artery Scan Pulse Rate 90 Respiratory Rate 21 H Blood Pressure 108/55 L Blood Pressure Mean 72 Blood Pressure Location Right Arm Blood Pressure Position O2 Sat by Pulse Oximetry 92 L 93 L Oxygen Delivery Method Room Air Nasal Cannula Oxygen Flow Rate 2 Telemetry Type Bedside Monitor Telemetry Monitoring Continues Irregular Telemetry Rate (Approximate) Telemetry Heart Rate 93 Telemetry SPO2 94 EKG MI Interval 0.08 L EKG QRS Interval 0.07 Telemetry Strip Reading SR with PACs 03/30/24 20:00 03/30/24 21:03 03/31/24 01:00 Temperature 98.6 F Temperature Source Temporal Artery Scan Pulse Rate 112 H Respiratory Rate 29 H Blood Pressure 108/64 Blood Pressure Mean 78 Blood Pressure Location Right Arm Blood Pressure Position Sitting O2 Sat by Pulse Oximetry 98 Oxygen Delivery Method Nasal Cannula Nasal Cannula Oxygen Flow Rate 2 2 Telemetry Type Bedside Monitor Telemetry Monitoring Continues Irregular Telemetry Rate (Approximate) Telemetry Heart Rate 45 L Telemetry SPO2 90 L EKG MI Interval EKG QRS Interval 0.06 Telemetry Strip Reading A-FLUTTER WITH NELSON RATE 03/31/24 02:00 03/31/24 05:08 03/31/24 05:23 Temperature 97.5 F L Temperature Source Temporal Artery Scan Temporal Artery Scan Pulse Rate 60 49 L Respiratory Rate 30 H 20 Blood Pressure 107/84 90/34 L Blood Pressure Mean 91 52 Blood Pressure Location Right Arm Right Arm Blood Pressure Position Supine Supine O2 Sat by Pulse Oximetry 90 L 90 L 88 L Oxygen Delivery Method Nasal Cannula Nasal Cannula Nasal Cannula Oxygen Flow Rate 2 2 2 Telemetry Type Telemetry Monitoring Irregular Telemetry Rate (Approximate) Telemetry Heart Rate Telemetry SPO2 EKG MI Interval EKG QRS Interval Telemetry Strip Reading 03/31/24 07:00 03/31/24 09:42 Temperature 97.8 F Temperature Source Temporal Artery Scan Pulse Rate 49 L Respiratory Rate 20 Blood Pressure 97/44 L Blood Pressure Mean 61 Blood Pressure Location Left Arm Blood Pressure Position Supine O2 Sat by Pulse Oximetry 91 L Oxygen Delivery Method Nasal Cannula Oxygen Flow Rate 2.5 Telemetry Type Bedside Monitor Telemetry Monitoring Continues Irregular Telemetry Rate (Approximate) Telemetry Heart Rate 40 L Telemetry SPO2 91 L EKG MI Interval EKG QRS Interval 0.06 Telemetry Strip Reading Atrial Flutter with slow Ventricular Response Lab Results Lab Results: Lab Results: Last 24 Hours 03/31/24 06:25 WBC 4.64 RBC 2.58 L Hgb 8.9 L Hct 29.4 L MCV 114.0 H MCH 34.5 H MCHC 30.3 L RDW Coeff of Margaret 14.0 Plt Count 91 L Immature Gran % (Auto) 0.6 Neut % (Auto) 90.2 H Lymph % (Auto) 3.2 L Carroll % (Auto) 6.0 Eos % (Auto) 0.0 Baso % (Auto) 0.0 Neut # (Auto) 4.2 Lymph # (Auto) 0.2 L Carroll # (Auto) 0.3 L Eos # (Auto) 0.0 Baso # (Auto) 0.0 Immature Gran # (Auto) 0.0 Sodium 139.4 Potassium 4.00 Chloride 109.4 H Carbon Dioxide 21.0 L Anion Gap 13.00 BUN 38.2 H Creatinine 3.37 H D Estimated GFR (MDRD) 18.00 BUN/Creatinine Ratio 11.33 Glucose 104.0 Calcium 6.65 L Total Bilirubin 0.58 AST 41.6 ALT 24.4 Alkaline Phosphatase 83.3 Total Protein 5.25 L Albumin 2.98 L Globulin 2.27 Albumin/Globulin Ratio 1.31 Additional Comments Additional Comments: I have independently reviewed and interpreted the labs/EKGs/imaging ordered during this hospital stay. I have reviewed outside records that are available in our EMR that pertain to medical stay including imaging/notes/labs from previous visits. Active Medications Active Medications: Medications Generic Name Dose Route Start Last Admin Trade Name Freq PRN Reason Stop Dose Admin Acetaminophen 650 mg 03/28/24 07:49 03/28/24 16:38 Acetaminophen 650 Mg Supp.Rect RC 650 mg Q4H PRN Administration Fever >101 Apixaban 5 mg 03/30/24 21:00 03/31/24 09:16 Apixaban 5 Mg Tab PO 5 mg 2XD JAZZ Administration Diltiazem HCl 60 mg 03/30/24 12:50 03/31/24 06:29 Diltiazem Hcl 60 Mg Tablet PO Not Given Q6HR JAZZ Lactated Ringer's 1,000 mls @ 100 mls/hr 03/31/24 08:30 Lactated Ringers IV .Q10H JAZZ Levalbuterol HCl 1.25 mg 03/28/24 17:09 03/31/24 05:35 Levalbuterol Hcl 1.25 Mg/3 Ml Vial.Neb NEB 1.25 mg RTQ6H PRN Administration Wheezing Loperamide HCl 2 mg 03/30/24 12:52 03/30/24 13:12 Loperamide Hcl 2 Mg Tablet PO 2 mg AFTER LOOSE STOOLS PRN Administration Diarrhea Methylprednisolone Sodium Succinate 40 mg 03/31/24 10:30 03/31/24 11:30 Methylprednisolone Sod Succ/Pf 40 Mg/Ml Vial IVP 40 mg Q8HR JAZZ Administration Mirabegron 50 mg 03/30/24 12:50 03/31/24 09:16 Mirabegron 25 Mg Tab.Er.24h PO 50 mg DAILY JAZZ Administration Olanzapine 5 mg 03/28/24 21:49 03/29/24 09:32 Olanzapine 10 Mg Vial IM 5 mg Q6HR PRN Administration Agitation Oseltamivir Phosphate 75 mg 03/30/24 13:10 03/31/24 09:16 Oseltamivir Phosphate 75 Mg Capsule PO 04/03/24 21:01 75 mg Q12HR JAZZ Administration Pantoprazole Sodium 40 mg 03/30/24 12:50 03/31/24 06:31 Pantoprazole Sodium 40 Mg Tablet.Dr PO 40 mg BIDAC2 JAZZ Administration Sodium Chloride 1 syr 03/27/24 20:36 03/27/24 21:05 0.9% Sodium Chloride 10 Ml Disp.Syrin IVF 1 syr PRN PRN Administration To flush IV Venlafaxine HCl 75 mg 03/30/24 12:50 03/31/24 09:16 Venlafaxine Hcl 75 Mg Cap.Er.24h PO 75 mg DAILY JAZZ Administration Assessment (1) Dysphagia: Status: Acute Code(s): R13.10 - Dysphagia, unspecified SNOMED Code(s): 12502229 Plan Plan: 1. Acute metabolic encephalopathy in setting of influenza A - Improving. 2. Influenza A - Cont tamiflu. Xopenex prn. Isolation. Conservative measures. Adding solumedrol today due to wheezing. 3. A fib RVR - Resolved, now bradycardic. Holding cardizem. 4. Hypertension - Holding lisinopril 5. Multiple myeloma, chronic - Follows with Dr. Hall 6. Thrombocytopenia - likely due to acute illness. 7. Hypokalemia - replaced, goal of 4 8. Hypomagnesemia - replaced and resolved, now at 2 9. DINA - Cr bumped significantly today. Could be multifactoral from hypotension, diarrhea, poor intake. Fluid trial today. Repeat bmp this evening. Pt only has one kidney. Monitor output. DVT: Eliquis Dispo: Working with therapy today Discussed plan of care with Dr. Barrie Sandoval. Review Statement Review Statement: I have personally discussed and reviewed the patient's visit/currently labs/imaging/decision making with Dr. Sandoval, my supervising attending. Greater that 50 minutes spent with patient, 50% of the time spent with this patient was devoted to counseling and coordination of care.
--- NOTE | 2024-03-31 12:02 | RS.PTINEVL ---
Subjective Patient information Date of Evaluation: 03/31/24 Date of Arrival on Unit: 03/28/24 Admitted From:: Home Diagnosis: Flu A, acute metabolic encephalopathy Usual Living Arrangement: Personal Care Facility ([facility]) Living Arrangement Comments: lives in assisted living facility, Son is supportive Home Environment: Apartment and Level/No stairs Medical History: Hypertension, CVA/TIA, Arthritis and Cancer (multiple myeloma) Medical History Comments:: CAD, Afib, LATEX ALLERGY?: No Surgical History: Knee Replacement (Right), Lumbar Spine and CABG Surgical History Comments:: kidney removal Medications: see chart Subjective Information/ Patient Comments:: pt states that he is doing a little better. pt states he uses a rwx at [facility]. Level of function Prior to this admission, the patient could do the following:: Independent Selfcare, Independent ADL's, Independent Ambulation (w rwx ), Drive and Participated in Social Activities Outside home Current Level of Function: Partially Dependent Current Equipment Used at Home: walker Interventions Objective Patient Orientation: Person and Place Current Interventions: IV's, Oxygen and Telemetry Observation: When MMT BLE pt exhibited B feet inversion and extension. pt appears anxious and demonstrates difficulty keeping focus with distraction. Range of Motion ROM Right Upper Extremity AROM: WFL's Left Upper Extremity AROM: WFL's Right Lower Extremity AROM: WFL's Left Lower Extremity AROM: WFL's Muscle Strength Muscle Strength Right Upper Extremity: Mild Weakness (grossly 4/5) Left Upper Extremity: Mild Weakness (grossly 4/5) Right Lower Extremity: Mild Weakness (hip flex 4-/5, knee flex/ext 4/5, ankle Df/PF 4/5) Left Lower Extremity: Mild Weakness (hip flex 4-/5, knee flex/ext 4/5, ankle Df/PF 4/5) Sensation Sensation Right Upper Extremity: Intact/Normal Left Upper Extremity: Intact/Normal Right Lower Extremity: Intact/Normal Left Lower Extremity: Intact/Normal Balance Sitting Balance and Reactions Static Sitting Balance: Fair Dynamic Sitting Balance: Fair (fair-) Standing Balance and Reactions Static Standing Balance: Poor (poor+) Dynamic Standing Balance: Poor Standing Equilibrium Reactions: Delayed Left and Delayed Right Standing Protective Reactions: Delayed Left and Delayed Right Functional Mobility Bed Mobility Rolling R/L: CGA Supine to Sit: CGA Transfers Sit to Stand: CGA and 1 person assist Stand to Sit: CGA, Min Assist and 1 person assist Safety Awareness Safety Awareness: Poor ERLINDA INDEX SCORE: n/a Ambulation Ambulation Assistive Device Used: Rolling Walker Orthotic/Prosthetic Device: No Distance: 5ft from bed to chair Assistance needed with Ambulation: CGA and 1 person assist Gait Deviations: Shuffling gait, Forward posture and Short stride Factors Affecting Ambulation: Decreased Balance, Breathing/O2 Saturation, Weakness, Decreased Coordination, Decreased Safety, Cognitive Status and Limited Endurance Treatment time Units charged ADL: 1 (TA) Time with patient Length of Evaluation: 19 Total treatment time: 27 Patient Education Education Patient Education: Activity Modification and Education of Plan of Care Teaching Recipient: Patient Teaching Methods: Discussion Comments: discussion regarding POC Assessment Assessment Problem List:: Decreased level of function, Requires training/education, Decrea sed safety/Risk of falls, Weakness and Cognitive status limits abilities Rehab Potential: Fair Further Therapy Indicated?: Yes Candidate for Swing Bed for Therapy Services?: pt may be a candidate for swing bed if able to consistently participate. Evaluation Complexity: HISTORY: Medium, EXAM OF BODY SYSTEMS: Medium, CLINICAL PRESENTATION: Medium and CLINICAL DECISION MAKING: Medium Patient's Goal(s): Be as independent as possible Short Term Goals GOAL #1: pt demonstrate rolling and scooting to edge of bed independently. Goal to be met by: 04/03/24 GOAL #2: Transfer sup to/from sit SBA Goal to be met by: 04/03/24 GOAL #3: Transfer sit to/from stand CGA to SBA Goal to be met by: 04/04/24 GOAL #4: Improve BLE strength 4 to 4+/5 Goal to be met by: 04/04/24 GOAL #5: pt amb 100ft with rwx with CGA x 1 w O2 Goal to be met by: 04/04/24 Sales Planning Manager Goals GOAL #1: pt transfer sup to/from sit to/from stand independently. Goal to be met by: 04/06/24 GOAL #2: pt amb functional household distances with rwx SBA to independent. Goal to be met by: 04/06/24 GOAL #3: Improve stand balance fair. Goal to be met by: 04/06/24 Plan Plan of Care: Therapeutic EX, Neuromuscular Re-Educ and Therapeutic Activity Other:: gait training Frequency of Treatment: 1-2 X day, as tolerated Duration of Treatment: 5-6 days Anticipated Discharge Destination: Home ([facility]) Treatment Diagnosis (ICD 10 Codes): impaired balance R 26.81 weakness M62.81 gait difficulty R 26.2 Has the Physician been added for Co-signature?: Yes
[2024-03-31] MEDS: LACTATED RINGERS 1,000 ML IV SCH (13:27)
--- NOTE | 2024-03-31 13:58 | DI ---
EXAM: FRONTAL AND LATERAL CHEST RADIOGRAPH(S). 2 VIEWS. History:Shortness of breath, influenza Comparison: 03/27/2024 Findings: Cardiomegaly. No pneumothorax or pleural effusion. Left basilar airspace consolidation du e to subsegmental atelectasis and/or pneumonia. Remote left-sided rib fractures. Impression: Please see above.
[2024-03-31] MEDS: ROCEPHIN 1 GM/50 ML D5W 1 GM/50 ML BAG IV SCH (16:21)
[2024-03-31] MEDS: DOXYCYCLINE HYCLATE PO SCH (16:21)
[2024-03-31 18:29] LABS: BLOOD UREA NITROGEN 47.3 mg/dL (9-20); CALCIUM 6.82 mg/dL (8.4-10.2); CARBON DIOXIDE 20.4 mmol/L (22-30.0); CHLORIDE 106.8 mmol/L (98-107); CREATININE 3.05 mg/dL (0.60-1.10); GLUCOSE 154.3 mg/dL (74-106); POTASSIUM 4.37 mmol/L (3.5-5.1); SODIUM 136.9 mmol/L (134.5-145)
[2024-03-31] MEDS: TYLENOL PO PRN (23:17)
[2024-03-31 23:53] LABS: ABG PH 7.43 (7.35-7.45); BEecf -6.4 (-2.0-3.0)
[2024-03-31 23:54] LABS: COHb 0.3 (0.5-1.5); HCO3 17.9 (21-28); MetHb 0.2 (0-1.5); TCO2 18.7 (19-24); sO2 93.3 % (94-98)
[2024-03-31 23:55] LABS: ABG O2 HGB 92.4 % (95-100)
[2024-03-31] MEDS: XOPENEX 1.25 MG NEB SCH (23:59)
[2024-04-01 05:41] LABS: BASOPHILS % (AUTO) 0.1 % (0.0-3.0); HEMOGLOBIN 8.9 g/dl (14.0-18.0); IMMATURE GRANULOCYTE % (AUTO) 0.2 % (0.0-5.0); LYMPHOCYTES # (AUTO) 0.1 K/uL (0.60-3.4); LYMPHOCYTES % (AUTO) 0.9 (10.0-50.0); MEAN CORPUSCULAR HEMOGLOBIN 34.9 pg (27.0-31.0); MEAN CORPUSCULAR HGB CONC 30.7 (31.8-35.4); MEAN CORPUSCULAR VOLUME 113.7 fl (80.0-94.0); MONOCYTES # (AUTO) 0.2 K/uL (0.4-2.0); MONOCYTES % (AUTO) 2.4 (0-10); NEUTROPHILS # (AUTO) 8.1 K/ul (2.0-6.9); NEUTROPHILS % (AUTO) 96.4 % (42.2-75.2); PLATELET COUNT 72 10^3/uL (140-440); RDW COEFFICIENT OF VARIATION 13.9 % (11.6-14.8); RED BLOOD COUNT 2.55 10^6/ul (4.70-6.10); WHITE BLOOD COUNT 8.45 K/ul (4.2-10.2)
[2024-04-01 05:55] LABS: ALANINE AMINOTRANSFERASE 24.3 U/L (0-50); ALBUMIN 2.94 g/dL (3.5-5.0); ALKALINE PHOSPHATASE 89.4 U/L (56-119); ASPARTATE AMINO TRANSFERASE 41.9 U/L (17-59); BILIRUBIN,TOTAL 0.56 mg/dL (0.2-1.3); BLOOD UREA NITROGEN 48.6 mg/dL (9-20); CALCIUM 7.15 mg/dL (8.4-10.2); CARBON DIOXIDE 19.4 mmol/L (22-30.0); CHLORIDE 108.2 mmol/L (98-107); CREATININE 2.87 mg/dL (0.60-1.10); GLUCOSE 195.8 mg/dL (74-106); MAGNESIUM 1.57 mg/dL (1.6-2.3); POTASSIUM 4.47 mmol/L (3.5-5.1); SODIUM 137.8 mmol/L (134.5-145)
[2024-04-01 05:57] LABS: ANISOCYTOSIS 1+ (NOT PRESENT); POIKILOCYTOSIS 1+ (NOT PRESENT); TOTAL PROTEIN 5.17 g/dL (6.3-8.2)
[2024-04-01] MEDS: MYRBETRIQ PO SCH (08:43)
[2024-04-01] MEDS: TAMIFLU CAPSULE PO SCH (08:43)
[2024-04-01] MEDS: MAGNESIUM SULF 2 G/50 ML BAG 2 GM/50 ML PIGGYBACK IV ONE (08:44)
[2024-04-01] MEDS: ATIVAN IVP ONE (09:17)
--- NOTE | 2024-04-01 09:24 | PCM.PROG ---
Date/Time Seen Date Seen by Provider: 04/01/24 Time Seen by Provider: 08:30 Provider Provider: ASAD FLEMING [facility]-C, [facility] Chief Complaint Chief Complaint: NAUSEA/VOMITTING, AMS Subjective Subjective: Patient has been much more alert, interactive, and oriented. Still has some confusion which worsens at night. He was primarily bradycardic yesterday, now tachycardic today. Otherwise he is asking to go home, states he's doing a lot better. Discussed he still need improvement from a cardiac and respiratory standpoint. CXR yesterday showed atelectasis vs possible pneumonia. Antibiotics started. Objective Appearance: Positive No Apparent Distress and Other (+alert, oriented to person, place, and somewhat to situation. Answering questions appropriately. ) Chest/Lungs: Positive Symmetrical With Equal Breath Sounds, Rhonci and Wheezes (rohit); Negative Rales Heart: Positive Irregular Rhythm and Tachycardia GI/: Positive Soft, Nontender, Bowel Sounds Normal and No Distention Neurological: Positive Cranial Nerves Intact, Alert, Oriented and Other (+generalized weakness ) Vital Signs Vital Signs: Vital Signs: Last 24 Hours 03/31/24 09:42 03/31/24 10:00 03/31/24 13:00 Temperature 97.8 F Temperature Source Temporal Artery Scan Pulse Rate 49 L Respiratory Rate 20 Blood Pressure 97/44 L Blood Pressure Mean 61 Blood Pressure Location Left Arm Blood Pressure Position Supine O2 Sat by Pulse Oximetry 91 L 96 Oxygen Delivery Method Nasal Cannula Nasal Cannula Oxygen Flow Rate 2.5 2 Telemetry Type Remote Telemetry Telemetry Monitoring Continues Irregular Telemetry Rate (Approximate) 70's Telemetry Heart Rate Telemetry SPO2 92 L EKG QRS Interval 0.11 H Telemetry Strip Reading Atrial Flutter with BBB 03/31/24 13:35 03/31/24 13:52 03/31/24 17:38 Temperature 98.5 F 97.7 F Temperature Source Temporal Artery Scan Temporal Artery Scan Pulse Rate 70 76 Respiratory Rate 20 20 Blood Pressure 117/68 98/62 Blood Pressure Mean 84 74 Blood Pressure Location Right Arm Right Arm Blood Pressure Position Supine Supine O2 Sat by Pulse Oximetry 96 90 L 92 L Oxygen Delivery Method Nasal Cannula Nasal Cannula Room Air Oxygen Flow Rate 2 2 Telemetry Type Telemetry Monitoring Irregular Telemetry Rate (Approximate) Telemetry Heart Rate Telemetry SPO2 EKG QRS Interval Telemetry Strip Reading 03/31/24 19:00 03/31/24 19:28 03/31/24 20:00 Temperature Temperature Source Pulse Rate Respiratory Rate Blood Pressure Blood Pressure Mean Blood Pressure Location Blood Pressure Position O2 Sat by Pulse Oximetry Oxygen Delivery Method Nasal Cannula Nasal Cannula Oxygen Flow Rate 2 2 Telemetry Type Remote Telemetry Telemetry Monitoring Continues Irregular Telemetry Rate (Approximate) 70-80 BPM Telemetry Heart Rate 72 Telemetry SPO2 EKG QRS Interval 0.09 Telemetry Strip Reading AFIB 03/31/24 21:11 04/01/24 01:00 04/01/24 01:49 Temperature 97.4 F L 98.2 F Temperature Source Oral Temporal Artery Scan Pulse Rate 83 93 Respiratory Rate 20 31 H Blood Pressure 138/61 123/72 Blood Pressure Mean 86 89 Blood Pressure Location Right Arm Right Arm Blood Pressure Position Supine Supine O2 Sat by Pulse Oximetry 90 L 92 L Oxygen Delivery Method Nasal Cannula Nasal Cannula Oxygen Flow Rate 3 4 Telemetry Type Remote Telemetry Telemetry Monitoring Continues Irregular Telemetry Rate (Approximate) Telemetry Heart Rate 91 Telemetry SPO2 EKG QRS Interval 0.06 Telemetry Strip Reading afib 04/01/24 05:12 04/01/24 05:42 04/01/24 05:58 Temperature 97.9 F Temperature Source Temporal Artery Scan Pulse Rate 95 Respiratory Rate 31 H Blood Pressure 99/69 113/53 L Blood Pressure Mean 79 73 Blood Pressure Location Right Arm Left Arm Blood Pressure Position Supine O2 Sat by Pulse Oximetry 93 L 94 L Oxygen Delivery Method Nasal Cannula Nasal Cannula Nasal Cannula Oxygen Flow Rate 4 4 Telemetry Type Telemetry Monitoring Irregular Telemetry Rate (Approximate) Telemetry Heart Rate Telemetry SPO2 EKG QRS Interval Telemetry Strip Reading 04/01/24 07:00 04/01/24 08:00 Temperature Temperature Source Pulse Rate Respiratory Rate Blood Pressure Blood Pressure Mean Blood Pressure Location Blood Pressure Position O2 Sat by Pulse Oximetry Oxygen Delivery Method Nasal Cannula Oxygen Flow Rate 2 Telemetry Type Bedside Monitor Telemetry Monitoring Continues Irregular Telemetry Rate (Approximate) Telemetry Heart Rate 114 H Telemetry SPO2 93 EKG QRS Interval 0.10 Telemetry Strip Reading AFIB RVR Lab Results Lab Results: Lab Results: Last 24 Hours 04/01/24 03/31/24 03/31/24 05:35 23:40 18:13 WBC 8.45 RBC 2.55 L Hgb 8.9 L Hct 29.0 L MCV 113.7 H MCH 34.9 H MCHC 30.7 L RDW Coeff of Margaret 13.9 Plt Count 72 L Immature Gran % (Auto) 0.2 Neut % (Auto) 96.4 H Lymph % (Auto) 0.9 L [place] % (Auto) 2.4 Eos % (Auto) 0.0 Baso % (Auto) 0.1 Neut # (Auto) 8.1 H Lymph # (Auto) 0.1 L [place] # (Auto) 0.2 L Eos # (Auto) 0.0 Baso # (Auto) 0.0 Immature Gran # (Auto) 0.0 Poikilocytosis 1+ Anisocytosis 1+ Puncture Site Rb Base Excess -6.4 L O2 Saturation 93.3 L ABG pH 7.43 ABG pCO2 27.0 L ABG pO2 66.0 L ABG HCO3 17.9 L ABG Total CO2 18.7 L [place] Test Pos Hemoglobin 0.2 Oxyhemoglobin 92.4 L Carboxyhemoglobin 0.3 L Total Hemoglobin 10.0 L O2 Delivery Device cannula Oxygen Liter Flow 3.00 FiO2 % 3.0 Sodium 137.8 136.9 Potassium 4.47 4.37 Chloride 108.2 H 106.8 Carbon Dioxide 19.4 L 20.4 L Anion Gap 14.67 14.07 BUN 48.6 H 47.3 H Creatinine 2.87 H 3.05 H Estimated GFR (MDRD) 21.00 20.00 BUN/Creatinine Ratio 16.93 15.50 Glucose 195.8 H 154.3 H D Calcium 7.15 L 6.82 L Magnesium 1.57 L Total Bilirubin 0.56 AST 41.9 ALT 24.3 Alkaline Phosphatase 89.4 Total Protein 5.17 L Albumin 2.94 L Globulin 2.23 Albumin/Globulin Ratio 1.31 Additional Comments Additional Comments: I have independently reviewed and interpreted the labs/EKGs/imaging ordered during this hospital stay. I have reviewed outside records that are available in our EMR that pertain to medical stay including imaging/notes/labs from previous visits. Active Medications Active Medications: Medications Generic Name Dose Route Start Last Admin Trade Name Freq PRN Reason Stop Dose Admin Acetaminophen 650 mg 03/31/24 22:55 03/31/24 23:17 Acetaminophen 325 Mg Tablet PO 650 mg Q4H PRN Administration FEVER/PAIN Apixaban 5 mg 03/30/24 21:00 04/01/24 08:44 Apixaban 5 Mg Tab PO 5 mg 2XD JAZZ Administration Diltiazem HCl 60 mg 03/30/24 12:50 03/31/24 12:00 Diltiazem Hcl 60 Mg Tablet PO Not Given Q6HR JAZZ Doxycycline Hyclate 100 mg 03/31/24 14:40 04/01/24 08:43 Doxycycline Hyclate 100 Mg Capsule PO 04/03/24 14:39 100 mg Q12HR JAZZ Administration Lactated Ringer's 1,000 mls @ 100 mls/hr 03/31/24 08:30 04/01/24 06:24 Lactated Ringers IV 100 mls/hr .Q10H JAZZ Administration CEFTRIAXONE/D5W 1 GM PREMIX 1 gm in 50 mls @ 100 mls/hr 03/31/24 14:40 03/31/24 16:21 Rocephin 1 Gm/50 Ml D5w IV 04/03/24 14:39 100 mls/hr DAILY JAZZ Administration MAGNESIUM SULFATE IN WATER 2 gm in 50 mls @ 25 mls/hr 04/01/24 08:26 04/01/24 08:44 Magnesium Sulf 2 G/50 Ml Bag IV 04/01/24 10:25 25 mls/hr ONCE ONE Administration Levalbuterol HCl 1.25 mg 04/01/24 00:00 04/01/24 05:25 Levalbuterol Hcl 1.25 Mg/3 Ml Vial.Neb NEB 1.25 mg RTQ6H JAZZ Administration Loperamide HCl 2 mg 03/30/24 12:52 03/30/24 13:12 Loperamide Hcl 2 Mg Tablet PO 2 mg AFTER LOOSE STOOLS PRN Administration Diarrhea Methylprednisolone Sodium Succinate 40 mg 03/31/24 10:30 04/01/24 04:21 Methylprednisolone Sod Succ/Pf 40 Mg/Ml Vial IVP 40 mg Q8HR JAZZ Administration Mirabegron 25 mg 04/01/24 09:00 04/01/24 08:43 Mirabegron 25 Mg Tab.Er.24h PO 25 mg DAILY JAZZ Administration Olanzapine 5 mg 03/28/24 21:49 03/29/24 09:32 Olanzapine 10 Mg Vial IM 5 mg Q6HR PRN Administration Agitation Oseltamivir Phosphate 30 mg 04/01/24 09:00 04/01/24 08:43 Oseltamivir Phosphate 30 Mg Capsule PO 04/03/24 09:01 30 mg DAILY JAZZ Administration Pantoprazole Sodium 40 mg 03/30/24 12:50 04/01/24 05:31 Pantoprazole Sodium 40 Mg Tablet.Dr PO 40 mg BIDAC2 JAZZ Administration Sodium Chloride 1 syr 03/27/24 20:36 03/27/24 21:05 0.9% Sodium Chloride 10 Ml Disp.Syrin IVF 1 syr PRN PRN Administration To flush IV Venlafaxine HCl 75 mg 03/30/24 12:50 04/01/24 08:43 Venlafaxine Hcl 75 Mg Cap.Er.24h PO 75 mg DAILY JAZZ Administration Assessment (1) Dysphagia: Status: Acute Code(s): R13.10 - Dysphagia, unspecified SNOMED Code(s): 40326538 Plan Plan: 1. Acute metabolic encephalopathy in setting of influenza A - Improving. 2. Influenza A - Cont tamiflu. Xopenex prn. Isolation. Conservative measures. Cont solumedrol. 3. A fib RVR - Worsened today, restart oral cardizem, will adjust as needed. 4. Hypertension - Holding lisinopril 5. Multiple myeloma, chronic - Follows with Dr. Hall 6. Thrombocytopenia - likely due to acute illness. 7. Hypokalemia - replaced, goal of 4 8. Hypomagnesemia - worsened again, mag rider ordered. 9. DINA - Improved, continue gentle fluids. Could be multifactoral from hypotension, diarrhea, poor intake. Pt only has one kidney. Monitor output. 10. Acute hypoxic respiratory failure in setting of influenza - Requiring 2-3L. Plan as above. 11. Pneumonia, left - Could be viral in nature but due to patient's symptoms will treat with antibiotics. DVT: Spike Discussed plan of care with Dr. Barrie Sandoval. Review Statement Review Statement: I have personally discussed and reviewed the patient's visit/currently labs/imaging/decision making with Dr. Sandoval, my supervising attending. Greater that 50 minutes spent with patient, 50% of the time spent with this patient was devoted to counseling and coordination of care.
[2024-04-02 05:32] LABS: HEMATOCRIT 27.6 % (42.0-52.0); HEMOGLOBIN 8.5 g/dl (14.0-18.0); IMMATURE GRANULOCYTE # (AUTO) 0.1 (0.0-1.0); IMMATURE GRANULOCYTE % (AUTO) 0.7 % (0.0-5.0); LYMPHOCYTES # (AUTO) 0.1 K/uL (0.60-3.4); MEAN CORPUSCULAR HEMOGLOBIN 34.8 pg (27.0-31.0); MEAN CORPUSCULAR HGB CONC 30.8 (31.8-35.4); MEAN CORPUSCULAR VOLUME 113.1 fl (80.0-94.0); MONOCYTES # (AUTO) 0.2 K/uL (0.4-2.0); MONOCYTES % (AUTO) 1.7 (0-10); NEUTROPHILS # (AUTO) 8.3 K/ul (2.0-6.9); NEUTROPHILS % (AUTO) 96.6 % (42.2-75.2); PLATELET COUNT 53 10^3/uL (140-440); RDW COEFFICIENT OF VARIATION 14.1 % (11.6-14.8); RED BLOOD COUNT 2.44 10^6/ul (4.70-6.10); WHITE BLOOD COUNT 8.61 K/ul (4.2-10.2)
[2024-04-02 05:45] LABS: ALANINE AMINOTRANSFERASE 21.9 U/L (0-50); ALBUMIN 2.81 g/dL (3.5-5.0); ALKALINE PHOSPHATASE 97.1 U/L (56-119); ASPARTATE AMINO TRANSFERASE 31.3 U/L (17-59); BILIRUBIN,TOTAL 0.44 mg/dL (0.2-1.3); BLOOD UREA NITROGEN 44.8 mg/dL (9-20); CALCIUM 7.35 mg/dL (8.4-10.2); CARBON DIOXIDE 22.3 mmol/L (22-30.0); CHLORIDE 112.7 mmol/L (98-107); GLUCOSE 167.6 mg/dL (74-106); MAGNESIUM 1.88 mg/dL (1.6-2.3); POTASSIUM 4.26 mmol/L (3.5-5.1); SODIUM 143.2 mmol/L (134.5-145); TOTAL PROTEIN 5.19 g/dL (6.3-8.2)
[2024-04-02 06:02] LABS: CREATININE 1.99 mg/dL (0.60-1.10)
[2024-04-02] MEDS: MYRBETRIQ PO SCH (08:19)
[2024-04-02] MEDS: TAMIFLU CAPSULE PO SCH (08:20)
[2024-04-02] MEDS: MAGNESIUM SULF 2 G/50 ML BAG 2 GM/50 ML PIGGYBACK IV ONE (10:05)
--- NOTE | 2024-04-02 10:24 | PCM.PROG ---
Date/Time Seen Date Seen by Provider: 04/02/24 Time Seen by Provider: 08:30 Provider Provider: ASAD FLEMING PA-C, [facility] Chief Complaint Chief Complaint: NAUSEA/VOMITTING, AMS Subjective Subjective: Patient is doing much better today. Lungs sound better. He is very interactive, making jokes. He hopes to go for a walk and to shower today. Objective Appearance: Positive No Apparent Distress and Alert and Oriented x3 Chest/Lungs: Positive Rhonci, Wheezes and Other (overall improved today. Still requiring 4L ) Heart: Positive Irregular Rhythm GI/: Positive Soft, Nontender, Bowel Sounds Normal and No Distention Neurological: Positive Cranial Nerves Intact, Alert, Oriented and Other (+generalized weakness ) Vital Signs Vital Signs: Vital Signs: Last 24 Hours 04/01/24 13:00 04/01/24 13:43 04/01/24 14:00 Temperature 97.8 F Temperature Source Temporal Artery Scan Pulse Rate 92 Respiratory Rate 23 H Blood Pressure 139/68 Blood Pressure Mean 91 Blood Pressure Location Left Arm Blood Pressure Position Supine O2 Sat by Pulse Oximetry 93 L 94 L Oxygen Delivery Method Nasal Cannula Nasal Cannula Oxygen Flow Rate 4 4 Telemetry Type Remote Telemetry Telemetry Monitoring Continues Irregular Telemetry Rate (Approximate) 100-110 BPM Telemetry Heart Rate 101 H Telemetry SPO2 92 L EKG QRS Interval 0.06 EKG QT Interval Telemetry Strip Reading AFIB 04/01/24 17:46 04/01/24 19:00 04/01/24 19:39 Temperature 98 F Temperature Source Temporal Artery Scan Pulse Rate 115 H Respiratory Rate 25 H Blood Pressure 125/73 Blood Pressure Mean 90 Blood Pressure Location Right Arm Blood Pressure Position Sitting O2 Sat by Pulse Oximetry 95 Oxygen Delivery Method Nasal Cannula Nasal Cannula Oxygen Flow Rate 4 4 Telemetry Type Bedside Monitor Telemetry Monitoring Continues Irregular Telemetry Rate (Approximate) 100-110 BPM Telemetry Heart Rate Telemetry SPO2 EKG QRS Interval 0.05 L EKG QT Interval Telemetry Strip Reading AFIB with RVR 04/01/24 19:48 04/01/24 21:24 04/02/24 00:48 Temperature 98.0 F Temperature Source Temporal Artery Scan Pulse Rate 91 Respiratory Rate 24 H Blood Pressure 120/75 Blood Pressure Mean 90 Blood Pressure Location Left Arm Blood Pressure Position Supine O2 Sat by Pulse Oximetry 93 L 95 Oxygen Delivery Method Nasal Cannula Room Air Oxygen Flow Rate 4 Telemetry Type Bedside Monitor Telemetry Monitoring Continues Irregular Telemetry Rate (Approximate) 80-90 BPM Telemetry Heart Rate Telemetry SPO2 95 EKG QRS Interval 0.06 EKG QT Interval Telemetry Strip Reading Atrial Fib 04/02/24 02:00 04/02/24 04:55 04/02/24 05:23 Temperature 97.9 F Temperature Source Temporal Artery Scan Pulse Rate 81 84 Respiratory Rate 22 H 26 H Blood Pressure 117/73 130/73 Blood Pressure Mean 87 92 Blood Pressure Location Left Arm Left Arm Blood Pressure Position Supine Supine O2 Sat by Pulse Oximetry 96 96 Oxygen Delivery Method Nasal Cannula Nasal Cannula Nasal Cannula Oxygen Flow Rate 4 4 4 Telemetry Type Telemetry Monitoring Irregular Telemetry Rate (Approximate) Telemetry Heart Rate Telemetry SPO2 EKG QRS Interval EKG QT Interval Telemetry Strip Reading 04/02/24 07:00 04/02/24 10:00 04/02/24 10:00 Temperature 96.8 F L Temperature Source Temporal Artery Scan Pulse Rate 86 Respiratory Rate 22 H Blood Pressure 145/82 H Blood Pressure Mean 103 Blood Pressure Location Left Arm Blood Pressure Position Supine O2 Sat by Pulse Oximetry 95 95 Oxygen Delivery Method Nasal Cannula Nasal Cannula Oxygen Flow Rate 4 4 Telemetry Type Bedside Monitor Telemetry Monitoring Continues Irregular Telemetry Rate (Approximate) 80-90 BPM Telemetry Heart Rate Telemetry SPO2 96 EKG QRS Interval EKG QT Interval 0.06 L Telemetry Strip Reading AFIB Lab Results Lab Results: Lab Results: Last 24 Hours 04/02/24 05:23 WBC 8.61 RBC 2.44 L Hgb 8.5 L Hct 27.6 L MCV 113.1 H MCH 34.8 H MCHC 30.8 L RDW Coeff of Margaret 14.1 Plt Count 53 L Immature Gran % (Auto) 0.7 Neut % (Auto) 96.6 H Lymph % (Auto) 1.0 L [place] % (Auto) 1.7 Eos % (Auto) 0.0 Baso % (Auto) 0.0 Neut # (Auto) 8.3 H Lymph # (Auto) 0.1 L [place] # (Auto) 0.2 L Eos # (Auto) 0.0 Baso # (Auto) 0.0 Immature Gran # (Auto) 0.1 Sodium 143.2 Potassium 4.26 Chloride 112.7 H Carbon Dioxide 22.3 Anion Gap 12.46 BUN 44.8 H Creatinine 1.99 H D Estimated GFR (MDRD) 33.00 BUN/Creatinine Ratio 22.51 Glucose 167.6 H Calcium 7.35 L Magnesium 1.88 Total Bilirubin 0.44 AST 31.3 ALT 21.9 Alkaline Phosphatase 97.1 Total Protein 5.19 L Albumin 2.81 L Globulin 2.38 Albumin/Globulin Ratio 1.18 Additional Comments Additional Comments: I have independently reviewed and interpreted the labs/EKGs/imaging ordered during this hospital stay. I have reviewed outside records that are available in our EMR that pertain to medical stay including imaging/notes/labs from previous visits. Active Medications Active Medications: Medications Generic Name Dose Route Start Last Admin Trade Name Freq PRN Reason Stop Dose Admin Acetaminophen 650 mg 03/31/24 22:55 03/31/24 23:17 Acetaminophen 325 Mg Tablet PO 650 mg Q4H PRN Administration FEVER/PAIN Apixaban 5 mg 03/30/24 21:00 04/02/24 08:20 Apixaban 5 Mg Tab PO 5 mg 2XD JAZZ Administration Diltiazem HCl 240 mg 04/02/24 10:25 Diltiazem Hcl 120 Mg Cap.Er.24h PO DAILY JAZZ Doxycycline Hyclate 100 mg 03/31/24 14:40 04/02/24 08:20 Doxycycline Hyclate 100 Mg Capsule PO 04/03/24 14:39 100 mg Q12HR JAZZ Administration CEFTRIAXONE/D5W 1 GM PREMIX 1 gm in 50 mls @ 100 mls/hr 03/31/24 14:40 04/02/24 08:15 Rocephin 1 Gm/50 Ml D5w IV 04/03/24 14:39 100 mls/hr DAILY JAZZ Administration MAGNESIUM SULFATE IN WATER 2 gm in 50 mls @ 25 mls/hr 04/02/24 08:34 04/02/24 10:05 Magnesium Sulf 2 G/50 Ml Bag IV 04/02/24 10:33 25 mls/hr ONCE ONE Administration Levalbuterol HCl 1.25 mg 04/01/24 00:00 04/02/24 05:24 Levalbuterol Hcl 1.25 Mg/3 Ml Vial.Neb NEB 1.25 mg RTQ6H JAZZ Administration Loperamide HCl 2 mg 03/30/24 12:52 03/30/24 13:12 Loperamide Hcl 2 Mg Tablet PO 2 mg AFTER LOOSE STOOLS PRN Administration Diarrhea Methylprednisolone Sodium Succinate 40 mg 03/31/24 10:30 04/02/24 04:49 Methylprednisolone Sod Succ/Pf 40 Mg/Ml Vial IVP 40 mg Q8HR JAZZ Administration Mirabegron 50 mg 04/02/24 09:00 04/02/24 08:19 Mirabegron 25 Mg Tab.Er.24h PO 50 mg DAILY JAZZ Administration Olanzapine 5 mg 03/28/24 21:49 03/29/24 09:32 Olanzapine 10 Mg Vial IM 5 mg Q6HR PRN Administration Agitation Oseltamivir Phosphate 30 mg 04/02/24 09:00 04/02/24 08:20 Oseltamivir Phosphate 30 Mg Capsule PO 04/03/24 21:01 30 mg Q12HR JAZZ Administration Pantoprazole Sodium 40 mg 03/30/24 12:50 04/02/24 05:26 Pantoprazole Sodium 40 Mg Tablet. PO 40 mg BIDAC2 JAZZ Administration Sodium Chloride 1 syr 03/27/24 20:36 03/27/24 21:05 0.9% Sodium Chloride 10 Ml Disp.Syrin IVF 1 syr PRN PRN Administration To flush IV Venlafaxine HCl 75 mg 03/30/24 12:50 04/02/24 08:19 Venlafaxine Hcl 75 Mg Cap.Er.24h PO 75 mg DAILY JAZZ Administration Assessment (1) Dysphagia: Status: Acute Code(s): R13.10 - Dysphagia, unspecified SNOMED Code(s): 09190272 Plan Plan: 1. Acute metabolic encephalopathy in setting of influenza A - Resolving 2. Influenza A - Cont tamiflu (today is day #4). Xopenex prn. Isolation. Conservative measures. Cont solumedrol. 3. A fib RVR - Improved, transitioning to cardizem CD 240 mg 4. Hypertension - Holding lisinopril 5. Multiple myeloma, chronic - Follows with Dr. Hall 6. Thrombocytopenia - likely due to acute illness. 7. Hypokalemia - replaced, goal of 4 8. Hypomagnesemia - Improved, another mag rider ordered, goal of 2 9. DINA - Improved, stop fluids today to avoid fluid overload. Could be multifactoral from hypotension, diarrhea, poor intake. Pt only has one kidney. Monitor output. 10. Acute hypoxic respiratory failure in setting of influenza - Requiring 3-4L. Plan as above. Attempt to wean. 11. Pneumonia, left - Could be viral in nature but due to patient's symptoms will treat with antibiotics (started on 03/31). DVT: Spike Discussed plan of care with Dr. Barrie Sandoval. Review Statement Review Statement: I have personally discussed and reviewed the patient's visit/currently labs/imaging/decision making with Dr. Sandoval, my supervising attending. Greater that 50 minutes spent with patient, 50% of the time spent with this patient was devoted to counseling and coordination of care.
[2024-04-02] MEDS: CARDIZEM CD PO SCH (10:46)
[2024-04-03 05:53] LABS: HEMATOCRIT 25.9 % (42.0-52.0); IMMATURE GRANULOCYTE # (AUTO) 0.1 (0.0-1.0); IMMATURE GRANULOCYTE % (AUTO) 0.9 % (0.0-5.0); LYMPHOCYTES # (AUTO) 0.1 K/uL (0.60-3.4); LYMPHOCYTES % (AUTO) 0.8 (10.0-50.0); MEAN CORPUSCULAR HEMOGLOBIN 34.8 pg (27.0-31.0); MEAN CORPUSCULAR HGB CONC 30.9 (31.8-35.4); MEAN CORPUSCULAR VOLUME 112.6 fl (80.0-94.0); MONOCYTES # (AUTO) 0.2 K/uL (0.4-2.0); MONOCYTES % (AUTO) 2.5 (0-10); NEUTROPHILS # (AUTO) 6.1 K/ul (2.0-6.9); NEUTROPHILS % (AUTO) 95.8 % (42.2-75.2); PLATELET COUNT 42 10^3/uL (140-440); RDW COEFFICIENT OF VARIATION 14.3 % (11.6-14.8); WHITE BLOOD COUNT 6.38 K/ul (4.2-10.2)
[2024-04-03 06:05] LABS: ALANINE AMINOTRANSFERASE 25.4 U/L (0-50); ALBUMIN 2.74 g/dL (3.5-5.0); ALKALINE PHOSPHATASE 105.2 U/L (56-119); ASPARTATE AMINO TRANSFERASE 27.3 U/L (17-59); BILIRUBIN,TOTAL 0.41 mg/dL (0.2-1.3); BLOOD UREA NITROGEN 46.2 mg/dL (9-20); CALCIUM 7.33 mg/dL (8.4-10.2); CARBON DIOXIDE 21.2 mmol/L (22-30.0); CHLORIDE 113.1 mmol/L (98-107); CREATININE 1.97 mg/dL (0.60-1.10); GLUCOSE 184.1 mg/dL (74-106); MAGNESIUM 2.09 mg/dL (1.6-2.3); POTASSIUM 3.14 mmol/L (3.5-5.1); SODIUM 143.4 mmol/L (134.5-145); TOTAL PROTEIN 5.06 g/dL (6.3-8.2)
[2024-04-03] MEDS: K-DUR PO ONE (09:00)
--- NOTE | 2024-04-03 09:17 | RS.DYSPHTX ---
Dysphagia Treatment Note Date of Note: 04/03/24 Time of Treatment: 08:05 Subjective: Patient was see for skilled speech therapy. He was alert and awake during the session. Total treatment time: 30 Short Term Goals Goal #1: Tolerate minced and moist diet. Activity/Accuracy: According to report from patient and nursing he is tolerating the diet well. He does still easily get out of breath and intake is minimal. Goal #2: Tolerate regular diet. Activity/Accuracy: na Load Dispatcher Goals Goal #1: Tolerate least restrictive diet to safely meet nutrition/hydration. Assessment: Patient is more alert and coherent this morning. He was able to report how he was doing and he was oriented x4. Units Charged Swallowing Therapy: 1
--- NOTE | 2024-04-03 11:22 | PCM.PROG ---
Date/Time Seen Date Seen by Provider: 04/03/24 Time Seen by Provider: 09:15 Provider Provider: NICOLE THOMPSON, [facility] Chief Complaint Chief Complaint: NAUSEA/VOMITTING, AMS Subjective Subjective: Nightshift RN attempted to wean oxygen and sat dropped to 80s and HR increased to 130s. Resolved when oxygen was increased back to 4L. States he is feeling better but is still wheezing and SOA on exertion. Objective Chest/Lungs: Positive Symmetrical With Equal Breath Sounds and Wheezes (insp and expir) Heart: Positive RRR and Pulses Normal GI/: Positive Soft, Nontender, Bowel Sounds Normal and No Distention Musculoskeletal: Positive Not Examined Neurological: Positive Sensation Intact, Motor intact, Alert, Oriented and Other (generalized weakness) Vital Signs Vital Signs: Vital Signs: Last 24 Hours 04/02/24 13:00 04/02/24 14:00 04/02/24 14:00 Temperature 97.2 F L Temperature Source Temporal Artery Scan Pulse Rate 99 Respiratory Rate 17 Blood Pressure 121/68 Blood Pressure Mean 85 Blood Pressure Location Left Arm Blood Pressure Position Sitting O2 Sat by Pulse Oximetry 90 L 89 L Oxygen Delivery Method Nasal Cannula Nasal Cannula Oxygen Flow Rate 3 2 Telemetry Type Bedside Monitor Telemetry Monitoring Continues Irregular Telemetry Rate (Approximate) 110-120 BPM Telemetry SPO2 90 L EKG QRS Interval 0.06 Telemetry Strip Reading AFIB with Sinus Beats and PACs 04/02/24 18:00 04/02/24 19:00 04/02/24 19:33 Temperature 97.7 F Temperature Source Temporal Artery Scan Pulse Rate 85 Respiratory Rate 16 Blood Pressure 125/62 Blood Pressure Mean 83 Blood Pressure Location Left Arm Blood Pressure Position Sitting O2 Sat by Pulse Oximetry 92 L Oxygen Delivery Method Nasal Cannula Nasal Cannula Oxygen Flow Rate 3 2 Telemetry Type Bedside Monitor Telemetry Monitoring Continues Irregular Telemetry Rate (Approximate) 80-90 BPM Telemetry SPO2 91 L EKG QRS Interval 0.06 Telemetry Strip Reading AFIB 04/02/24 20:00 04/02/24 21:08 04/03/24 01:00 Temperature 97.5 F L Temperature Source Temporal Artery Scan Pulse Rate 109 H Respiratory Rate 16 Blood Pressure 154/91 H Blood Pressure Mean 112 Blood Pressure Location Left Arm Blood Pressure Position Supine O2 Sat by Pulse Oximetry 93 L Oxygen Delivery Method Nasal Cannula Nasal Cannula Oxygen Flow Rate 2 3 Telemetry Type Bedside Monitor Telemetry Monitoring Continues Irregular Telemetry Rate (Approximate) 100-110 BPM Telemetry SPO2 93 EKG QRS Interval 0.08 Telemetry Strip Reading AFIB 04/03/24 01:35 04/03/24 05:40 04/03/24 05:45 Temperature 97.2 F L 96.9 F L Temperature Source Temporal Artery Scan Temporal Artery Scan Pulse Rate 135 H 87 Respiratory Rate 31 H 21 H Blood Pressure 144/81 H 135/84 Blood Pressure Mean 102 101 Blood Pressure Location Left Arm Left Arm Blood Pressure Position Supine Supine O2 Sat by Pulse Oximetry 89 L 93 L Oxygen Delivery Method Nasal Cannula Nasal Cannula Nasal Cannula Oxygen Flow Rate 4 4 4 Telemetry Type Telemetry Monitoring Irregular Telemetry Rate (Approximate) Telemetry SPO2 EKG QRS Interval Telemetry Strip Reading 04/03/24 07:00 04/03/24 08:00 04/03/24 09:59 Temperature 97.2 F L Temperature Source Temporal Artery Scan Pulse Rate 83 Respiratory Rate 22 H Blood Pressure Blood Pressure Mean Blood Pressure Location Left Arm Blood Pressure Position O2 Sat by Pulse Oximetry 93 L Oxygen Delivery Method Nasal Cannula Room Air Oxygen Flow Rate 4 4 Telemetry Type Bedside Monitor Telemetry Monitoring Continues Irregular Telemetry Rate (Approximate) 80-90 BPM Telemetry SPO2 EKG QRS Interval 0.10 Telemetry Strip Reading AFIB 04/03/24 10:00 Temperature Temperature Source Pulse Rate Respiratory Rate Blood Pressure Blood Pressure Mean Blood Pressure Location Blood Pressure Position O2 Sat by Pulse Oximetry 95 Oxygen Delivery Method Nasal Cannula Oxygen Flow Rate 4 Telemetry Type Telemetry Monitoring Irregular Telemetry Rate (Approximate) Telemetry SPO2 EKG QRS Interval Telemetry Strip Reading Lab Results Lab Results: Lab Results: Last 24 Hours 04/03/24 05:42 WBC 6.38 RBC 2.30 L Hgb 8.0 L Hct 25.9 L MCV 112.6 H MCH 34.8 H MCHC 30.9 L RDW Coeff of Margaret 14.3 Plt Count 42 L Immature Gran % (Auto) 0.9 Neut % (Auto) 95.8 H Lymph % (Auto) 0.8 L Williams % (Auto) 2.5 Eos % (Auto) 0.0 Baso % (Auto) 0.0 Neut # (Auto) 6.1 Lymph # (Auto) 0.1 L Williams # (Auto) 0.2 L Eos # (Auto) 0.0 Baso # (Auto) 0.0 Immature Gran # (Auto) 0.1 Sodium 143.4 Potassium 3.14 L Chloride 113.1 H Carbon Dioxide 21.2 L Anion Gap 12.24 BUN 46.2 H Creatinine 1.97 H Estimated GFR (MDRD) 33.00 BUN/Creatinine Ratio 23.45 Glucose 184.1 H Calcium 7.33 L Magnesium 2.09 Total Bilirubin 0.41 AST 27.3 ALT 25.4 Alkaline Phosphatase 105.2 Total Protein 5.06 L Albumin 2.74 L Globulin 2.32 Albumin/Globulin Ratio 1.18 Additional Comments Additional Comments: I have independently reviewed and interpreted the labs/EKGs/imaging ordered during this hospital stay. I have reviewed outside records that are available in our EMR that pertain to medical stay including imaging/notes/labs from previous visits. Active Medications Active Medications: Medications Generic Name Dose Route Start Last Admin Trade Name Freq PRN Reason Stop Dose Admin Acetaminophen 650 mg 03/31/24 22:55 03/31/24 23:17 Acetaminophen 325 Mg Tablet PO 650 mg Q4H PRN Administration FEVER/PAIN Apixaban 5 mg 03/30/24 21:00 04/03/24 08:17 Apixaban 5 Mg Tab PO 5 mg 2XD JAZZ Administration Diltiazem HCl 240 mg 04/02/24 10:25 04/03/24 08:15 Diltiazem Hcl 120 Mg Cap.Er.24h PO 240 mg DAILY JAZZ Administration Doxycycline Hyclate 100 mg 03/31/24 14:40 04/03/24 08:17 Doxycycline Hyclate 100 Mg Capsule PO 04/03/24 14:39 100 mg Q12HR JAZZ Administration CEFTRIAXONE/D5W 1 GM PREMIX 1 gm in 50 mls @ 100 mls/hr 03/31/24 14:40 04/03/24 08:15 Rocephin 1 Gm/50 Ml D5w IV 04/03/24 14:39 100 mls/hr DAILY JAZZ Administration Levalbuterol HCl 1.25 mg 04/01/24 00:00 04/03/24 11:05 Levalbuterol Hcl 1.25 Mg/3 Ml Vial.Neb NEB 1.25 mg RTQ6H JAZZ Administration Loperamide HCl 2 mg 03/30/24 12:52 03/30/24 13:12 Loperamide Hcl 2 Mg Tablet PO 2 mg AFTER LOOSE STOOLS PRN Administration Diarrhea Mirabegron 50 mg 04/02/24 09:00 04/03/24 08:16 Mirabegron 25 Mg Tab.Er.24h PO 50 mg DAILY JAZZ Administration Olanzapine 5 mg 03/28/24 21:49 03/29/24 09:32 Olanzapine 10 Mg Vial IM 5 mg Q6HR PRN Administration Agitation Oseltamivir Phosphate 30 mg 04/02/24 09:00 04/03/24 08:17 Oseltamivir Phosphate 30 Mg Capsule PO 04/03/24 21:01 30 mg Q12HR JAZZ Administration Pantoprazole Sodium 40 mg 03/30/24 12:50 04/03/24 05:29 Pantoprazole Sodium 40 Mg Tablet. PO 40 mg [id number] JAZZ Administration Prednisone 20 mg 04/03/24 17:00 Prednisone 20 Mg Tablet PO [id number] JAZZ Sodium Chloride 1 syr 03/27/24 20:36 04/03/24 05:20 0.9% Sodium Chloride 10 Ml Disp.Syrin IVF 1 syr PRN PRN Administration To flush IV Venlafaxine HCl 75 mg 03/30/24 12:50 04/03/24 08:15 Venlafaxine Hcl 75 Mg Cap.Er.24h PO 75 mg DAILY JAZZ Administration Assessment (1) Dysphagia: Status: Acute Code(s): R13.10 - Dysphagia, unspecified SNOMED Code(s): 55157793 Plan Plan: 1. Acute metabolic encephalopathy in setting of influenza A - Resolving 2. Influenza A - Cont tamiflu then stop (today is day #5). Xopenex Q6H. Isolation. Conservative measures. Taper steriods 3. A fib RVR - RVR resolved, cardizem CD 240 daily restarted 4. Hypertension - Holding lisinopril 5. Multiple myeloma, chronic - Follows with Dr. Hall, due for chemo on , Case management contacting today to determine if need to hold 6. Thrombocytopenia - likely due to acute illness. 7. Hypokalemia - replacement ordered, 3.1 today 8. Hypomagnesemia - Resolved, 9. DINA - Improving, fluids stopped yesterday, Could be multifactoral from hypotension, diarrhea, poor intake. Pt only has one kidney. Monitor output. 10. Acute hypoxic respiratory failure in setting of influenza - Unchanged, failed wean overnight, still requiring 3-4L. Plan as above. Attempt to wean. 11. Pneumonia, left - Could be viral in nature but due to patient's symptoms will treat with antibiotics (started on 03/31). DVT: Spike Discussed plan of care with Dr. Barrie Sandoval. Dispo: Prior to admission, patient was able to drive and resides at assisted living. Would further benefit from skilled rehab for therapy as well as medical treatment for nebs and weaning of oxygen. Review Statement Review Statement: I have personally discussed and reviewed the patient's visit/currently labs/imaging/decision making with Dr. Sandoval, my supervising attending. Greater that 50 minutes spent with patient, 50% of the time spent with this patient was devoted to counseling and coordination of care.
--- NOTE | 2024-04-03 13:55 | RS.OTINEVL ---
Subjective Patient information Date of Evaluation: 04/03/24 Date of Arrival on Unit: 03/28/24 Admitted From:: Home Diagnosis: Flu A, Afib, HTN, Multiple myeloma PRECAUTIONS: Bone Cancer in spine. Usual Living Arrangement: Personal Care Facility ([facility]) Living Arrangement Comments: lives in assisted living facility ([facility]), Son is supportive Home Environment: Apartment and Level/No stairs Medical History: Hypertension, CVA/TIA, Arthritis and Cancer (multiple myeloma) Medical History Comments:: CAD, Afib, LATEX ALLERGY?: No Surgical History: Knee Replacement (Right), Lumbar Spine and CABG Surgical History Comments:: kidney removal Medications: see chart Subjective Information/ Patient Comments:: "I moved to quickly. I thought I would not live long." Level of function Prior to this admission, the patient could do the following:: Independent Selfcare, Independent ADL's, Independent Ambulation (w rwx ), Drive and Par ticipated in Social Activities Outside home Abilities prior to this admission: Pt was living at home alone, had a motor cycle. Pt sold his home, his motorcycle and moved into [facility]. Current Level of Function: Partially Dependent Comments: Pt has become weak from the flu. He is weak and knows he would benefit from skilled therapy. Pt has taken chemo for his cancer. Current Equipment Used at Home: walker Pain Assessment Pain Side: bilateral Pain Location Body Site: Back (Pt has pain in the R thigh and up his back.) Pain Aggravating Factors: Changing Position Pain Alleviating Factors: Medication (Marijuana) Interventions Objective Patient Orientation: Person, Place and Situation Current Interventions: Oxygen (4 Liters) Observation: Pt CGA for sit to stand EOB. Pt is Independent with getting to EOB and sitting. Pt is weak and would benefit from skilled OT for completing ADLS safely and progressing him to be independent with ADLs. Interventions ROM Right Upper Extremity AROM: WFL's Left Upper Extremity AROM: WFL's Strength Right Upper Extremity: Mild Weakness Left Upper Extremity: Mild Weakness Sensation Right Upper Extremity: Intact/Normal Left Upper Extremity: Intact/Normal Balance Sitting Balance Static Sitting Balance: Good Dynamic Sitting Balance: Good Standing Balance Static Standing Balance: Fair Dynamic Standing Balance: Fair ADL Skills Self Feeding Self Feeding: Independent Grooming Grooming: Min Assist Grooming Set-up: Sitting Bathing Bathing UE: Independent Bathing LE: Independent Bathing Set-up: Shower (With a shower chair) Dressing Dressing UE: Independent Dressing LE: Min Assist Toilet Management Toilet Hygiene: Independent Toilet Clothing Management: CGA Functional Mobility Bed Mobility Rolling R/L: Independent Scooting: Independent Supine to Sit: Independent Sit to Supine: Independent Transfers Sit to Stand: CGA Stand to Sit: CGA Ambulation Weight Bearing Status: FWB Assistive Device Used: Rolling Walker Assistance needed with Ambulation: Not Tested Safety Awareness Safety Awareness: Fair ERLINDA INDEX SCORE: . Additional Treatment Performed Time with patient Length of Evaluation: 17 Total treatment time: 20 Activities Do you enjoy playing games?: Yes Would you be interested in leaving your room for activities?: Yes Would you enjoy group activities?: Yes What types of things do you enjoy doing? Any Hobbies?: Fidget toys Patient Interests:: Watching Television and Visiting/Socializing Patient Education Patient Education: Education of diagnosis, Body/Joint mechanics, Home Exercise Program, Home Safety and Education of Plan of Care Teaching Recipient: Patient Teaching Methods: Discussion and Demonstration Assessment Problem List:: Decreased level of function, Requires training/education, Decreased safety/Risk of falls, Weakness and Pain limits previous level of function Rehab Potential: Fair Further Therapy Indicated?: Yes Evaluation Complexity: HISTORY: Medium, EXAM OF BODY SYSTEMS: Medium and CLINICAL DECISION MAKING: Medium Patient's Goal(s): To be able to get stronger and feel better and buy a Trike. Short Term Goals Goals GOAL 1: Pt to be SBA for sink level ADLs. Goal to be met by: 04/06/24 GOAL 2: Pt to increase BUE strength to 4/5. Goal to be met by: 04/06/24 GOAL 3: Pt to increase dyn. std. bal. to Fair+. Goal to be met by: 04/10/24 GOAL 4: Pt to be (I) with BLE dressing. Goal to be met by: 04/10/24 GOAL 5: Pt to increase to SBA for toilet transfers. Goal to be met by: 04/10/24 Longterm Goals GOAL 1: Pt to increase ADLs to Independent. Goal to be met by: 04/13/24 GOAL 2: Pt to increase dyn. std. bal. to G-. Goal to be met by: 04/13/24 GOAL 3: Pt to increase BUE strength to 4+/5. Goal to be met by: 04/13/24 Plan Plan of Care: Therapeutic EX, Therapeutic Activity and Self-Care/Home Management Frequency of Treatment: 1-2 X day, as tolerated Duration of Treatment: 7-10 days Anticipated Discharge Destination: Assisted Living Facility Treatment Diagnosis (ICD 10 Codes): R26.81 Impaired balance, R53.1 Weakness Has the Physician been added for Co-signature?: Yes
[2024-04-03] MEDS: PREDNISONE PO SCH (16:42)
[2024-04-04 05:21] LABS: HEMATOCRIT 25.6 % (42.0-52.0); HEMOGLOBIN 7.9 g/dl (14.0-18.0); MEAN CORPUSCULAR HGB CONC 30.9 (31.8-35.4); MEAN CORPUSCULAR VOLUME 113.3 fl (80.0-94.0); PLATELET COUNT 49 10^3/uL (140-440); RDW COEFFICIENT OF VARIATION 14.4 % (11.6-14.8); RED BLOOD COUNT 2.26 10^6/ul (4.70-6.10); WHITE BLOOD COUNT 5.72 K/ul (4.2-10.2)
[2024-04-04 05:34] LABS: ALANINE AMINOTRANSFERASE 26.4 U/L (0-50); ALBUMIN 2.79 g/dL (3.5-5.0); ALKALINE PHOSPHATASE 80.3 U/L (56-119); ASPARTATE AMINO TRANSFERASE 35.4 U/L (17-59); BILIRUBIN,TOTAL 0.49 mg/dL (0.2-1.3); CALCIUM 7.35 mg/dL (8.4-10.2); CARBON DIOXIDE 24.4 mmol/L (22-30.0); CHLORIDE 111.3 mmol/L (98-107); CREATININE 1.77 mg/dL (0.60-1.10); GLUCOSE 170.9 mg/dL (74-106); MAGNESIUM 1.76 mg/dL (1.6-2.3); POTASSIUM 3.29 mmol/L (3.5-5.1); TOTAL PROTEIN 5.13 g/dL (6.3-8.2)
[2024-04-04 05:49] LABS: ANISOCYTOSIS NOT PRESENT (NOT PRESENT)
[2024-04-04 07:39] VITALS: PULSE 84
[2024-04-04] MEDS: K-DUR PO ONE (08:58)
[2024-04-04] MEDS: MIRALAX PO PRN (09:04)
[2024-04-04 10:03] VITALS: BP 138/89; RESP 21; TEMP 97.7
--- NOTE | 2024-04-04 10:51 | RS.DYSPHTX ---
Dysphagia Treatment Note Date of Note: 04/04/24 Time of Treatment: 09:30 Subjective: Patient was seen for skilled speech therapy. He was pleasant and cooperative during the session. He completed tasks to address his goals. Total treatment time: 30 Short Term Goals Goal #1: Tolerate minced and moist diet. Activity/Accuracy: Tolerating diet well but his appetite is still not good. Goal #2: Tolerate regular diet. Activity/Accuracy: not ready to tolerate due to decreased breathe support Director Product Goals Goal #1: Tolerate least restrictive diet to safely meet nutrition/hydration. Units Charged Swallowing Therapy: 1
--- NOTE | 2024-04-04 11:35 | DCSUM ---
Admission Date Admission Date: 03/28/24 Discharge Date Discharge Date: 04/04/24 Admission Diagnosis Admission Diagnosis: 1. Acute metabolic encephalopathy in setting of influenza A 2. Influenza A 3. A fib RVR 4. Hypertension 5. Multiple myeloma, chronic 6. Thrombocytopenia Discharge Diagnosis Discharge Diagnosis: 1. Acute metabolic encephalopathy in setting of influenza A - Resolved 2. Influenza A - Out of isolation, completed course of tamiflu 3. A fib RVR - Resolved 4. Hypertension - Chronic, stable 5. Multiple myeloma, chronic - Follows with Dr. Hall 6. Thrombocytopenia - Slightly improved 7. Hypokalemia - mild, replacement given 8. Hypomagnesemia - Resolved 9. DINA - Resolved 10. Acute hypoxic respiratory failure in setting of influenza - Improving, continues to require 3L 11. Pneumonia, left - Treated with antibiotics Hospital Provider Hospital Provider: NICOLE THOMPSON, [facility] Primary Care Physician Primary Care Physician: HEATH GABRIEL Summary of History and Physical Summary of History and Physical: Patient is a 78 year old male with pmhx of multiple myeloma (Dr. Hall), history of left CVA, hypertension, CAD/CABG, a fib on eliquis who comes from assisted living for increased agitation and diarrhea. Patient was found to be very agitated in the ER requiring haldol and zyprexa. CT chest, abd, pelvis, and head show no acute findings. He is positive for influenza A. He was initially given antibiotics for sepsis protocol. Patient admitted to [facility] This morning patient continues to be restless. Patient is febrile this morning. HR from 100-150s, a fib RVR. Pt unable to answer any questions appropriately. Limited ROS due to encephalopathy Reviewing [facility] records, pt has had multiple hospitalizations in the past due to AMS. On 01/02-01/06 he was admitted for AMS, hypoxia, pulmonary edema, hypertensive emergency, and was intubated. 01/14 -01/17 he was admitted for AMS and sinusitis. Hospital Course Subjective: 03/28/24 1. Acute metabolic encephalopathy in setting of influenza A - NPO until mentation improves. Ct head negative for acute findings. ABG does not show CO2 retention. Check UDS. 2. Influenza A - Will start tamiflu when able to take PO. Xopenex prn. Isolation. Conservative measures. 3. A fib RVR - Has received 2 doses of metoprolol IV, cardizem IV, and now starting cardizem drip. Transition eliquis to lovenox due to NPO. Will restart home meds when able. Cont fluids. Treat fever. Check mag. 4. Hypertension - Holding home meds at this time 5. Multiple myeloma, chronic - Follows with Dr. Hall 6. Thrombocytopenia - likely due to acute illness. Will monitor with lovenox. 03/29/24 Patient continues to be in a fib rvr despite maxing out cardizem drip. He continues to be confused, pulling at his gown and wires, grabbing at staff. Unable to answer questions appropriately. Received zyprexa through the night. 1. Acute metabolic encephalopathy in setting of influenza A - NPO until mentation improves. Accuchecks q6hrs. Ct head negative for acute findings. ABG does not show CO2 retention. UDS positive for thc. 2. Influenza A - Will start tamiflu when able to take PO. Xopenex prn. Isolation. Conservative measures. 3. A fib RVR - Continue cardizem drip, add lopressor 2.5 mg ivp q6hrs for better HR control. Continue lovenox due to NPO. Will restart home meds when able. Stop fluids. Treat fever. 4. Hypertension - Holding home meds at this time 5. Multiple myeloma, chronic - Follows with Dr. Hall 6. Thrombocytopenia - likely due to acute illness. Will monitor with lovenox. 7. Hypokalemia - replaced, goal of 4 8. Hypomagnesemia - replaced and resolved, now at 2 03/30/24 Patient's mentation is not at baseline but does seem much improved today. He's sitting up in the bed, and later in the chair, interacting. He is still very confused and oriented to person only. HR has been better managed on cardizem drip and iv lopressor. Planning to transition today after cleared by ST to take pills. 1. Acute metabolic encephalopathy in setting of influenza A - Improving. Transition to oral meds today. Stop accuchecks. 2. Influenza A - Start tamiflu. Xopenex prn. Isolation. Conservative measures. 3. A fib RVR - Transition to oral cardizem, stop drip 1 hour after first dose. If doing well this evening, will transition to his beta matt as well and stop the IV lopressor. 4. Hypertension - Holding lisinopril 5. Multiple myeloma, chronic - Follows with Dr. Hall 6. Thrombocytopenia - likely due to acute illness. 7. Hypokalemia - replaced, goal of 4 8. Hypomagnesemia - replaced and resolved, now at 2 03/31/24 Patient is much improved clinically. His mentation is significantly improved in last 24=48 hours. He is now conversational. Pt became bradycardic and hypotensive overnight. Renal function worse today. 1. Acute metabolic encephalopathy in setting of influenza A - Improving. 2. Influenza A - Cont tamiflu. Xopenex prn. Isolation. Conservative measures. Adding solumedrol today due to wheezing. 3. A fib RVR - Resolved, now bradycardic. Holding cardizem. 4. Hypertension - Holding lisinopril 5. Multiple myeloma, chronic - Follows with Dr. Hall 6. Thrombocytopenia - likely due to acute illness. 7. Hypokalemia - replaced, goal of 4 8. Hypomagnesemia - replaced and resolved, now at 2 9. DINA - Cr bumped significantly today. Could be multifactoral from hypotension, diarrhea, poor intake. Fluid trial today. Repeat bmp this evening. Pt only has one kidney. Monitor output. 04/01/24 Patient has been much more alert, interactive, and oriented. Still has some confusion which worsens at night. He was primarily bradycardic yesterday, now tachycardic today. Otherwise he is asking to go home, states he's doing a lot better. Discussed he still need improvement from a cardiac and respiratory standpoint. CXR yesterday showed atelectasis vs possible pneumonia. Antibiotics started. 1. Acute metabolic encephalopathy in setting of influenza A - Improving. 2. Influenza A - Cont tamiflu. Xopenex prn. Isolation. Conservative measures. Cont solumedrol. 3. A fib RVR - Worsened today, restart oral cardizem, will adjust as needed. 4. Hypertension - Holding lisinopril 5. Multiple myeloma, chronic - Follows with Dr. Hall 6. Thrombocytopenia - likely due to acute illness. 7. Hypokalemia - replaced, goal of 4 8. Hypomagnesemia - worsened again, mag rider ordered. 9. DINA - Improved, continue gentle fluids. Could be multifactoral from hypotension, diarrhea, poor intake. Pt only has one kidney. Monitor output. 10. Acute hypoxic respiratory failure in setting of influenza - Requiring 2-3L. Plan as above. 11. Pneumonia, left - Could be viral in nature but due to patient's symptoms will treat with antibiotics. 04/02/24 Patient is doing much better today. Lungs sound better. He is very interactive, making jokes. He hopes to go for a walk and to shower today. 1. Acute metabolic encephalopathy in setting of influenza A - Resolving 2. Influenza A - Cont tamiflu (today is day #4). Xopenex prn. Isolation. Conservative measures. Cont solumedrol. 3. A fib RVR - Improved, transitioning to cardizem CD 240 mg 4. Hypertension - Holding lisinopril 5. Multiple myeloma, chronic - Follows with Dr. Hall 6. Thrombocytopenia - likely due to acute illness. 7. Hypokalemia - replaced, goal of 4 8. Hypomagnesemia - Improved, another mag rider ordered, goal of 2 9. DIAN - Improved, stop fluids today to avoid fluid overload. Could be multifactoral from hypotension, diarrhea, poor intake. Pt only has one kidney. Monitor output. 10. Acute hypoxic respiratory failure in setting of influenza - Requiring 3-4L. Plan as above. Attempt to wean. 11. Pneumonia, left - Could be viral in nature but due to patient's symptoms will treat with antibiotics (started on 03/31). 04/03/24 Nightshift RN attempted to wean oxygen and sat dropped to 80s and HR increased to 130s. Resolved when oxygen was increased back to 4L. States he is feeling better but is still wheezing and SOA on exertion. 1. Acute metabolic encephalopathy in setting of influenza A - Resolving 2. Influenza A - Cont tamiflu then stop (today is day #5). Xopenex Q6H. Isolation. Conservative measures. Taper steriods 3. A fib RVR - RVR resolved, cardizem CD 240 daily restarted 4. Hypertension - Holding lisinopril 5. Multiple myeloma, chronic - Follows with Dr. Hall, due for chemo on , Case management contacting today to determine if need to hold 6. Thrombocytopenia - likely due to acute illness. 7. Hypokalemia - replacement ordered, 3.1 today 8. Hypomagnesemia - Resolved, 9. DINA - Improving, fluids stopped yesterday, Could be multifactoral from hypotension, diarrhea, poor intake. Pt only has one kidney. Monitor output. 10. Acute hypoxic respiratory failure in setting of influenza - Unchanged, failed wean overnight, still requiring 3-4L. Plan as above. Attempt to wean. 11. Pneumonia, left - Could be viral in nature but due to patient's symptoms will treat with antibiotics (started on 03/31). RN case manage discussed swingbed with son and agrees that is appropriate plan. Spoke with patient and would like to go home but discussed due to deconditioning and oxygen requirement this is not safe plan at this time. Will revisit tomorrow am. 04/04/24 Patient stated to RN he did not want to stay in the hospital and wants to go h ome. Upon entrance to room this am, patient brushing teeth at sink with OT with moderate exertion noted. O2 sat running in upper 80s on 3L on ambulation and HR increased to 120s-130s. Likely due to acute illness and will remain until able to decrease oxygen demands with strengthening and endurance. Discussed concerns with returning to assisted living and being required to care for self and be on oxygen. Agreeable that swingbed would be best option until able to return to baseline functional status. Finished course of tamiflu yesterday. Started steroid taper. Dr. Hall's office contacted and appointment for this has been rescheduled to a later date. Thrombocytopenia mildly improved today. Hypokalemia mild persists with replacement ordered. DINA resolved. Continues to require 3L at this time. Will continue to wean oxygen as tolerated. Continue nebs. Completed course of IV antibiotics for left sided pneumonia. Admit to swingbed program today. Appearance: Pleasant, No Apparent Distress, Alert and Ill-appearing HEENT: MMM CVS: No Murmur Abdomen: Soft and Non-Tender Respiratory: Other (course to R lung, diminished to L lung, air movement improved) Extremities: No Edema Vital Signs: Most Recent Vital Signs Temperature 97.7 F 04/04/24 10:00 Temperature Source Oral 04/04/24 10:00 Temperature Source Tympanic 03/27/24 22:56 Pulse Rate 84 04/04/24 10:00 Respiratory Rate 21 H 04/04/24 10:00 Blood Pressure 138/89 04/04/24 10:00 Blood Pressure Mean 105 04/04/24 10:00 Blood Pressure Left Arm 134/87 03/28/24 02:59 Blood Pressure Location Left Arm 04/04/24 10:00 Blood Pressure Position Supine 04/04/24 10:00 O2 Sat by Pulse Oximetry 94 L 04/04/24 10:00 Oxygen Delivery Method Nasal Cannula 04/04/24 10:00 Oxygen Flow Rate 2 04/04/24 10:00 Height 5 ft 9 in 04/04/24 09:23 Weight 88 kg 04/04/24 09:23 Telemetry Type Bedside Monitor 04/04/24 07:00 Telemetry Monitoring Continues 04/04/24 07:00 Irregular Telemetry Rate (Approximate) 90-100 BPM 04/04/24 01:00 Telemetry Heart Rate 84 04/04/24 07:00 Telemetry SPO2 95 04/04/24 07:00 EKG RI Interval 0.15 04/04/24 07:00 EKG QRS Interval 0.07 04/04/24 07:00 EKG QT Interval 0.06 L 04/02/24 07:00 Telemetry Strip Reading NSR 04/04/24 07:00 Imaging: EXAM: CHEST CTA WITH CONTRAST (PULMONARY ARTERY) HISTORY: Tachycardia, hypoxia. Rule out pulmonary embolus. TECHNIQUE: CTA acquisition of the chest from the thoracic inlet to the upper abdomen following IV contrast administration timed to filling of the pulmonary artery. 3D/MIP/VR images were utilized. COMPARISON: Chest radiograph 03/27/2024. FINDINGS: Lines, Tubes, Devices: None. Pulmonary arteries: - Diagnostic quality: Exam degraded by motion artifact such that nonocclusive segmental and subsegmental emboli cannot be excluded. - Central(Main/Lobar/Interlobar): No embolus. - Peripheral (Segmental/Subsegmental): No occlusive segmental embolus. - Right ventricle/Left ventricle ratio (normal <0.9): Normal. - Main pulmonary artery: Normal caliber. Lung Parenchyma, Pleura, and Airways: Central airways are patent. 5 mm left lower lobe nodule on axial image 49 of series 9. No pleural effusion. Thoracic Inlet, Mediastinum, and [place]: 1.2 cm left thyroid nodule, too small to warrant further evaluation. No lymphadenopathy. Heart, Vessels, and Pericardium: Normal caliber aorta. No visible coronary artery calcifications. No cariomegaly. No pericardial effusion. Bones and Soft Tissues: Diffuse osseous demineralization. Chronic compression fractures at T3 T7, T8, T10, T11, T12, L1, and L2. Status post vertebral augmentation at L2. Chronic left rib fractures. Upper Abdomen: Multiple cysts in the liver. Post cholecystectomy. Right nephrectomy. Modest hiatal hernia. IMPRESSION: No occlusive segmental or central pulmonary embolus. Smaller emboli cannot be excluded due to motion. 5 mm nodule in the left lower lobe. Consider follow-up chest CT in 1 year. Diffuse osseous demineralization. Chronic vertebral body compression fractures at multiple levels. Hiatal hernia. EXAM: CHEST ONE-VIEW HISTORY: Altered mental status COMPARISON: None FINDINGS: There is prominence of the right hilum. The heart size is prominent. The pulmonary vasculature is normal. No consolidating infiltrates are detected. No pneumothoraces or pleural effusions. Old healed left rib fractures are noted. IMPRESSION: 1. No acute cardiopulmonary disease. 2. Prominent right hilum. Underlying malignancy not excluded. Recommend correlation with a CT of the chest. 3. Old healed left rib fractures. EXAM: CT BRAIN WITHOUT CONTRAST HISTORY: Altered mental status TECHNIQUE: CT of the brain without intravenous contrast. FINDINGS: There is no acute hemorrhage midline shift or mass effect. No hydrocephalus or abnormal extra-axial fluid collection. Left frontal encephalomalacia. Chronic microvascular change of the white matter tracts, mild. Multiple lucencies of the skull. The visualized paranasal sinuses are clear. Soft tissues without significant abnormality. IMPRESSION: 1. No acute intracranial abnormality. 2. Left frontal encephalomalacia from prior insult. 3. Multiple calvarial lucencies suspect for metastasis versus myeloma. EXAM: CT OF THE ABDOMEN AND PELVIS WITH CONTRAST TECHNIQUE: CT of the abdomen and pelvis was performed with contrast. Multiplanar reformats were performed. HISTORY: Altered mental status, fever. COMPARISON: None. FINDINGS: Imaged lower thorax: Unremarkable. Liver: Multiple cysts in the liver with benign appearance. Gallbladder/Bile Ducts: No biliary dilation. Post cholecystectomy. Spleen: Unremarkable. Pancreas: Unremarkable. Adrenals: Unremarkable. Kidneys/Ureters: Post right nephrectomy. Left kidney is unremarkable. Bowel/mesentery/peritoneum: Modest hiatal hernia. Normal appendix. No ascites or free air. Retroperitoneum/vessels: No aortic aneurysm. Scattered atherosclerotic calcifications. No adenopathy. Pelvis: Enlarged prostate. Bladder wall thickness is normal. Bilateral fat containing inguinal hernias. Bones/body wall: Diffuse osseous demineralization. Chronic compression fracture of L2 status post vertebral plasty. Chronic compression fractures of T10, T11, T12, at L1 as well. No acute fracture demonstrated. Moderate degenerative changes of the hips. IMPRESSION: No acute abnormality in the abdomen or pelvis. Chronic and postsurgical findings as above. Lab Results Last 24 Hours: 04/04/24 05:10 WBC 5.72 RBC 2.26 L Hgb 7.9 L Hct 25.6 L MCV 113.3 H MCH 35.0 H MCHC 30.9 L RDW Coeff of Margaret 14.4 Plt Count 49 L Neutrophils % (Manual) 95.0 H Band Neutrophils % 1.0 Lymphocytes % (Manual) 1.0 L Monocytes % (Manual) 3.0 Anisocytosis Not present Sodium 144.0 Potassium 3.29 L Chloride 111.3 H Carbon Dioxide 24.4 Anion Gap 11.59 BUN 44.0 H Creatinine 1.77 H Estimated GFR (MDRD) 37.00 BUN/Creatinine Ratio 24.85 Glucose 170.9 H Calcium 7.35 L Magnesium 1.76 Total Bilirubin 0.49 AST 35.4 ALT 26.4 Alkaline Phosphatase 80.3 Total Protein 5.13 L Albumin 2.79 L Globulin 2.34 Albumin/Globulin Ratio 1.19 Discharge Instructions Discharge Planning: Discharge Planning > 40 minutes If patient is discharged with left ventricular systolic dysfunction: no Discharged with a beta matt? [] If no, why not? [] Discharged with an randy/arb? [] If no, why not? [] Admit to [facility] program Diagnosis: Impaired balance, weakness, gait difficulty Discharge Medications: Medications at Discharge (Home Meds & RX) venlafaxine 75 mg tablet 75 mg PO DAILY 01/16/17 propranolol 60 mg tablet 1 tab PO DAILY 05/30/18 apixaban 5 mg tablet (Eliquis) 5 mg PO 2XD 03/28/24 dexamethasone 4 mg tablet 20 mg PO .03/28/24 diphenhydramine HCl 25 mg capsule (Benadryl) 25 mg PO .03/28/24 famotidine 20 mg tablet 20 mg PO .03/28/24 gabapentin 100 mg capsule 100 mg PO 3XD 03/28/24 lisinopril 20 mg tablet 20 mg PO 2XD 03/28/24 mirabegron 50 mg tablet,extended release 24 hr (Myrbetriq) 50 mg PO DAILY 03/28/24 montelukast 10 mg tablet 10 mg PO DAILY 03/28/24 pantoprazole 40 mg tablet,delayed release 40 mg PO 2XD 03/28/24 propranolol 160 mg capsule,24 hr,extended release (Inderal LA) 160 mg PO DAILY 03/28/24 propranolol 160 mg capsule,24 hr,extended release (Inderal LA) 160 mg PO DAILY 03/28/24 valacyclovir 500 mg tablet 500 mg PO 2XD 03/28/24 venlafaxine 75 mg capsule,extended release 24 hr 75 mg PO DAILY 03/28/24 diltiazem HCl 120 mg capsule,extended release 24 hr (Cardizem CD) 240 mg (2 x 120 mg) PO DAILY #30 caps 04/04/24 levalbuterol HCl 1.25 mg/3 mL solution for nebulization 1.25 mg (3 mL) NEB RTQ6H 1 week #84 mL 04/04/24 Discharge Plan Discharge Discharge Orders: Discharge Patient (ONCE); Ordered 04/04/24 Ordered By: SABINE HARDEN Patient Disposition: DISCH W/I HOSP TO [facility]ING [facility] Prescriptions: New diltiazem HCl [Cardizem CD] 120 mg Capsule,Extended Release 24hr 240 mg PO DAILY Qty: 30 0RF levalbuterol HCl 1.25 mg/3 mL Solution For Nebulization 1.25 mg NEB RTQ6H 7 Days Qty: 84 0RF Continued venlafaxine 75 MG tablet 75 mg PO DAILY propranolol 60 MG tablet 1 tab PO DAILY gabapentin 100 mg capsule 100 mg PO 3XD Eliquis 5 mg tablet 5 mg PO 2XD valacyclovir 500 mg tablet 500 mg PO 2XD venlafaxine 75 mg capsule,extended release 24hr 75 mg PO DAILY lisinopril 20 mg tablet 20 mg PO 2XD pantoprazole 40 mg tablet,delayed release (DR/EC) 40 mg PO 2XD propranolol [Inderal LA] 160 mg capsule,extended release 24 hr 160 mg PO DAILY montelukast 10 mg tablet 10 mg PO DAILY mirabegron [Myrbetriq] 50 mg tablet extended release 24 hr 50 mg PO DAILY diphenhydramine HCl [Benadryl] 25 mg capsule 25 mg PO . Rx Instructions: take on before chemo only famotidine 20 mg tablet 20 mg PO . Rx Instructions: take on before chemo dexamethasone 4 mg tablet 20 mg PO . Rx Instructions: take on before chemo propranolol [Inderal LA] 160 mg capsule,extended release 24 hr 160 mg PO DAILY Discontinued diltiazem HCl [Cardizem CD] 120 mg capsule,extended release 24hr 120 mg PO DAILY Did you review [place] [employer] for ALL controlled substances?: No Discussed opioids are addictive and Narcan is available by prescription or from pharmacy.: No Condition: Stable Referrals: GOVIND HALL [DO] - 04/18/24 11:45 am
== END 2024-04-04 12:24 | disposition swing bed (61) | DRG 865 ==
LOC: ED 20:04 → SCU 03-28 02:06
PROVIDERS: ADMIT Hospitalist; ATTEND Nurse Practitioner Family